=== PATIENT | male | born 1965 | race African-American/Black ===

== ENCOUNTER 2020-04-06 14:43 | Inpatient (IN) | payer OTHER ==
--- NOTE | 2020-04-06 15:05 | PDOC ---
History of Present Illness - General Chief Complaint: Lethargy Stated Complaint: FOUND ON THE STREET - History of Present Illness Initial Comments: 04/06/20 15:54 54 y/o M hx of diabetes and HepC presents to the ED via EMS after being found on the ground by neighbours. per EMS lancets for glucose checks were found next to him. pt arousable to voice but keeps falling asleep can identity self and place, and able to follow instructions when arousable. Patient denies JETER, vision change, palpitations, cough, wheezing, orthopena, PND, leg swelling/pain, N/V, F,C, CP, SOB, urinary complaints, hematuria, BPR, abdominal pain, diarrhea, constipation, lightheadedness, weakness, sensory changes. PMHx: as noted above ROS: as noted SHx: Denies Etoh, IVDA, tobacco use Allergies: NKDA ROS: GENERAL/CONSTITUTIONAL: No fever or chills. No weakness. HEAD, EYES, EARS, NOSE AND THROAT: No change in vision. No ear pain or discharge. No sore throat. CARDIOVASCULAR: No chest pain or shortness of breath RESPIRATORY: No cough, wheezing, or hemoptysis. GASTROINTESTINAL: No nausea, vomiting, diarrhea or constipation. GENITOURINARY: No dysuria, frequency, or change in urination. MUSCULOSKELETAL: No joint or muscle swelling or pain. No neck or back pain. SKIN: No rash NEUROLOGIC: No headache, vertigo, loss of consciousness, or change in strength/sensation. ENDOCRINE: No increased thirst. No abnormal weight change HEMATOLOGIC/LYMPHATIC: No anemia, easy bleeding, or history of blood clots. ALLERGIC/IMMUNOLOGIC: No hives or skin allergy. PE: GENERAL: Drowsy. HEAD: No signs of trauma, normocephalic, atraumatic EYES: pupils equal and non-reactive to light (no pinpoint pupils) , EOMI, sclera anicteric, conjunctiva clear ENT: Auricles normal inspection, nares patent, NECK: Normal ROM, supple, no lymphadenopathy, JVD, or masses LUNGS: No distress, clear to auscultation bilaterally HEART: Regular rate and rhythm, normal S1 and S2, no murmurs, rubs or gallops, peripheral pulses normal and equal bilaterally. ABDOMEN: Soft, nontender, normoactive bowel sounds. No guarding, no rebound. No masses EXTREMITIES : Normal inspection, no edema. No clubbing or cyanosis NEUROLOGICAL: following commands but repeatedly falls asleep. 5/5 strength upper and lower extremities. AOx 2( person and place) SKIN: Warm, Dry, normal turgor, no rashes or lesions noted 04/06/20 16:58 Past History - Medical History Allergies/Adverse Reactions: Allergies Allergy/AdvReac Type Severity Reaction Status Date / Time No Known Drug Allergies Allergy Verified 04/06/20 16:23 Home Medications: Ambulatory Orders Insulin (Novolog 70/30) [Novolog Mix 70/30 Vial -] 15 units SQ BID 04/06/20 Aspirin [ASA -] 81 mg PO DAILY #30 tab.chew 04/11/20 ED Treatment Course - LABORATORY CBC & Chemistry Diagram: 04/08/20 06:09 04/09/20 15:50 - ADDITIONAL ORDERS Additional order review: Laboratory Results 04/06/20 14:54 POC Glucometer 476 04/06/20 14:54 POC Glucometer 476 Medical Decision Making - Medical Decision Making 04/06/20 15:56 54 y/o M hx of diabetes and HepC presents to the ED via EMS after being found on the ground by neighbours. per EMS lancets for glucose checks were found next to him. dka, hhs, drug overdose, syncope labs fluids repeat glucose checks reassess. 04/06/20 16:39 initial repletion with LR proceed with 1L of 1/2NS at 100ml/hr with potassium. continue bmp and glucose checks. no anion gap or acidosis (vbg) ketones mildly elevated 3.7 drug levels pending. 04/06/20 18:06 04/06/20 19:07 glucose down to 405 from 510 potassium still the same will increase rate to 200ml/hr pt more alert. last thing he remembers befor coming to hospital was being outside says he takes other medications but does not know what they are for. Discharge - Discharge Information Problems reviewed: Yes Clinical Impression/Diagnosis: Hyperglycemia Syncope Qualifiers: Syncope type: unspecified Qualified Code(s): R55 - Syncope and collapse Altered mental status Qualifiers: Altered mental status type: unspecified Qualified Code(s): R41.82 - Altered mental status, unspecified Condition: Stable Disposition: HOME - Follow up/Referral - Patient Discharge Instructions - Post Discharge Activity
[2020-04-06] MEDS ORDERED: LACTATED RINGERS SOLUTION 1000 ML INFUS.BAG IV STA (15:22)
--- NOTE | 2020-04-06 15:22 | PDOC ---
Attending Attestation - Resident Resident Name: Mike Singleton - ED Attending Attestation I have performed the following: I have examined & evaluated the patient, The case was reviewed & discussed with the resident, I agree w/resident's findings & plan, Exceptions are as noted - HPI HPI: 04/06/20 15:21 54YOM with h/o IDDM who was BIBEMS [place], then subsequently altered. He himself notes recent somnolence, lethargy, malaise, decreased appetite, and self-reported dehydration worsening for the past several days. States that he lives at home with his mother and he has not been taking care of himself, non-adherent to his outpatient medication regimen. The patient is initially somnolent and unable to provide helpful detailed medical history. - Physicial Exam PE: 04/06/20 16:38 GENERAL: a bit tired-appearing, pleasant-appearing adult male, POC, A/Ox4, no distress, answers questions appropriately HEENT: PERRLA, EOMI, moist mucous membranes NECK/BACK: no midline ttp, no spinal step-off or deformity, no hematoma, full ROM, neck supple CARDIOVASCULAR: regular rate/rhythm, no MGR, strong peripheral pulses, capillary refill 3 seconds, extremities wwp, no edema LUNGS/RESPIRATORY: no respiratory distress, CTAB GI/ABDOMEN: symmetric [id number], normoactive BS, soft, no ttp, no midline pulsatile masses : no CVA tenderness MSK/EXTREMITIES: no muscle atrophy, no acute deformity SKIN: warm and dry, no pallor, no jaundice, no rash, no pathologic-appearing bruising, no skin breakdown, no cuts, no lesions NEUROLOGICAL: GCS 15, CN II-XII grossly intact, 5/5 strength proximally and distally, no facial droop - Medical Decision Making 04/06/20 17:35 54YOM with h/o IDDM who p/w LOC and recent malaise/somnolence/lethargy, somewhat decreased ALOC on arrival, now improved. Initial Vital Signs Temp Pulse Resp BP Pulse Ox 98.5 F 78 20 110/72 100 04/06/20 15:02 04/06/20 15:02 04/06/20 15:02 04/06/20 15:02 04/06/20 15:02 DDX IBNLT: Most likely the patient had syncope resulting in fall, after which time he was found on the street and altered. Underlying cause likely uncontrolled IDDM with hyper/hypoglycemia, other electrolyte derangement, underlying arrhythmia, hypotension, hypoxia, ACS, CVA, TIA, etc. Possible orthostasis or vasovagal although these are diagnoses of exclusion. Unlikely PE given normal vitals on arrival and lack of right heart strain or tachycardia on EKG, unlikely seizure without underlying hx but this is still possible. Possible critical aortic stenosis but this is less likely without audible murmur, and the patient is young for this diagnosis. CXR: nothing acute Provider Orders Category Date Time Status VBG [VENOUS BLOOD GAS] Stat ABG 04/06/20 15:[address] WITHOUT CONTRAST [CT] Stat CT Scan 04/06/20 15:26 Ordered ELECTROCARDIOGRAM [CARD] Stat Cardiology 04/06/20 15:08 Ordered BGM (Blood Glucose Monitoring) Q1H Care 04/06/20 15:51 Active EKG needed NOW Care 04/06/20 15:09 Completed Insert Saline Lock NOW Care 04/06/20 15:08 Active Isolation Precautions As directed Care 04/06/20 15:36 Active ACETAMINOPHEN Stat Lab 04/06/20 16:50 Results ACTIVATED PTT Stat Lab 04/06/20 15:20 Completed ALCOHOL Stat Lab 04/06/20 14:55 Ordered BETA-HYDROXYBUTYRATE Stat Lab 04/06/20 15:20 Completed BMP [BASIC METABOLIC PANEL] Stat Lab 04/06/20 17:30 Uncollected CARDIAC PROFILE ([facility]) Stat Lab 04/06/20 15:20 Completed CBC WITH DIFFERENTIAL Stat Lab 04/06/20 15:20 Completed COMP METABOLIC PANEL Stat Lab 04/06/20 15:20 Completed COVID-19 Stat Lab 04/06/20 14:55 Ordered POC GLUCOSE TESTING Routine Lab 04/06/20 14:54 Completed POC GLUCOSE TESTING Routine Lab 04/06/20 15:11 Completed PT/INR (PROTHROMBIN TIME) Stat Lab 04/06/20 15:20 Completed SALICYLATE Stat Lab 04/06/20 16:50 Results UA ([facility]) ONLY Stat Lab 04/06/20 15:08 Uncollected Urine Toxicology [DRUG SCREEN,UR ER- [facility]] Stat Lab 04/06/20 15:10 Uncollected Lactated Ringers Solution Medication 04/06/20 15:45 Discontinued 1,000 ml IV ONCE ONE Lactated Ringers Solution Medication 04/06/20 15:22 Discontinued 1,000 ml IV ONCE STA Sodium Chloride 0.45%/Pot [1/2Ns+20Meq KCl] Medication 04/06/20 16:30 Active 20 meq in 1,000 ml IV ASDIR IV Insert NOW Phy Order 04/06/20 15:09 Active CHEST X-RAY PORTABLE* [RAD] Stat Radiology 04/06/20 15:09 Taken Medications Generic Name Dose Route Start Last Admin Trade Name Freq PRN Reason Stop Dose Admin Potassium Chloride/Sodium Chloride 20 meq in 1,000 mls @ 100 mls/hr 04/06/20 16:30 04/06/20 16:46 1/2ns+20meq Kcl IV 100 mls/hr ASDIR KAREN Administration Discontinued Medications Generic Name Dose Route Start Last Admin Trade Name Freq PRN Reason Stop Dose Admin Lactated Ringer's 1,000 ml 04/06/20 15:22 04/06/20 16:35 Lactated Ringers Solution IV 04/06/20 15:23 1,000 ml ONCE STA Administration Lactated Ringer's 1,000 ml 04/06/20 15:45 04/06/20 16:35 Lactated Ringers Solution IV 04/06/20 15:46 Not Given ONCE ONE Lab Results WBC 4.4 K/mm3 (4.0-10.0) 04/06/20 15:20 RBC 4.17 M/mm3 (4.00-5.60) 04/06/20 15:20 Hgb 13.1 GM/dL (11.7-16.9) 04/06/20 15:20 Hct 39.0 % (35.4-49) 04/06/20 15:20 MCV 93.5 fl (80-96) 04/06/20 15:20 MCH 31.4 pg (25.7-33.7) 04/06/20 15:20 MCHC 33.5 g/dl (32.0-35.9) 04/06/20 15:20 RDW 14.0 % (11.9-15.9) 04/06/20 15:20 Plt Count 189 K/MM3 (134-434) 04/06/20 15:20 MPV 10.5 fl (7.5-11.1) 04/06/20 15:20 Absolute Neuts (auto) 1.7 K/mm3 (1.5-8.0) 04/06/20 15:20 Neutrophils % 39.4 % (42.8-82.8) L 04/06/20 15:20 Lymphocytes % 50.7 % (8-40) H 04/06/20 15:20 Monocytes % 7.9 % (3.8-10.2) 04/06/20 15:20 Eosinophils % 1.1 % (0-4.5) 04/06/20 15:20 Basophils % 0.9 % (0-2.0) 04/06/20 15: Nucleated RBC % 0 % (0-0) 04/06/20 15:20 PT with INR 10.30 SEC (9.7-13.0) 04/06/20 15:20 INR 0.87 (0.83-1.09) 04/06/20 15:20 PTT (Actin FS) 27.6 SECONDS (25.2-36.5) 04/06/20 15:20 VBG pH 7.492 (7.310-7.410) H 04/06/20 15:20 POC VBG pCO2 32.8 mmHg (38-52) L 04/06/20 15:20 POC VBG pO2 146.6 mmHg (28-48) H 04/06/20 15:20 VBG HCO3 24.5 mmol/L (23-29) 04/06/20 15:20 VBG O2 Sat (Griffin) 99.1 % (70-80) H 04/06/20 15:20 VBG Base Excess 1.7 mmol/L (-2-2) 04/06/20 15:20 Sodium 136 mmol/L (136-145) 04/06/20 15:20 Potassium 3.8 mmol/L (3.5-5.1) 04/06/20 15:20 Chloride 99 mmol/L (98-107) 04/06/20 15:20 Carbon Dioxide 27 mmol/L (21-32) 04/06/20 15:20 Anion Gap 10 MMOL/L (8-16) 04/06/20 15:20 BUN 8.4 mg/dL (7-18) 04/06/20 15:20 Creatinine 1.1 mg/dL (0.55-1.3) 04/06/20 15:20 Est GFR (CKD-EPI)AfAm 88.98 04/06/20 15:20 Est GFR (CKD-EPI)NonAf 76.77 04/06/20 15:20 POC Glucometer 527 UNITS (80-120) 04/06/20 15:11 Random Glucose 510 mg/dL (74-106) H* 04/06/20 15:20 Calcium 9.2 mg/dL (8.5-10.1) 04/06/20 15:20 Total Bilirubin 0.5 mg/dL (0.2-1) 04/06/20 15:20 AST 49 U/L (15-37) H 04/06/20 15:20 ALT 75 U/L (13-61) H 04/06/20 15:20 Alkaline Phosphatase 177 U/L (45-117) H 04/06/20 15:20 Creatine Kinase 79 U/L (26-308) 04/06/20 15:20 Troponin I < 0.02 ng/ml (0.00-0.05) 04/06/20 15:20 Total Protein 7.5 g/dl (6.4-8.2) 04/06/20 15:20 Albumin 3.5 g/dl (3.4-5.0) 04/06/20 15:20 Beta-Hydroxybutyrate 3.7 mg/dL (0.2-2.8) H 04/06/20 15:20 Salicylates < 1.7 mg/dL (2.8-20) L 04/06/20 16:50 CT/HEAD CT WITHOUT CONTRAST Cranial CT without contrast Clinical information: altered mental status Multiplanar imaging was performed. Intravenous contrast was not administered. No prior imaging exam is available at this facility for direct comparison. No intracranial hemorrhage is seen. There is no extra-axial fluid collection. No gross mass lesion is seen on noncontrast imaging. There is no discrete infarct within the limitations of CT. No definite abnormal intracranial attenuation is noted. A small amount of air is seen within the cavernous sinuses bilaterally probably on the basis of recent venous cannulation. The ventricles and cisterns appear unremarkable. No calvarial defect is noted. Impression: No CT evidence of acute intracranial pathology. The Pt is unsafe for discharge at this time.They require further hospital observation, workup, and treatment for syncope and altered mental status in the setting of significant hyperglycemia (although no concern for DKA at this time given lack of anion gap). Admission procedures completed by resident. Heart Score/ECG Review #1 04/06/20 15:36 Sinur rhythm, rate 68, normal axis and intervals, TWI in III, no ischemic ST-T changes Discharge - Discharge Information Problems reviewed: Yes Clinical Impression/Diagnosis: Hyperglycemia Syncope Qualifiers: Syncope type: unspecified Qualified Code(s): R55 - Syncope and collapse Altered mental status Qualifiers: Altered mental status type: unspecified Qualified Code(s): R41.82 - Altered mental status, unspecified Condition: Stable - Admission Yes - Follow up/Referral - Patient Discharge Instructions - Post Discharge Activity
[2020-04-06 15:32] LABS: VENOUS BASE EXCESS 1.7 mmol/L (-2-2); VENOUS O2 SATURATION 99.1 % (70-80); VENOUS PCO2 32.8 mmHg (38-52); VENOUS PH 7.492 (7.310-7.410)
[2020-04-06 15:36] LABS: BASO % 0.9 % (0-2.0); EOS % 1.1 % (0-4.5); HEMOGLOBIN 13.1 GM/dL (11.7-16.9); LYMPH % 50.7 % (8-40); MCH 31.4 pg (25.7-33.7); MCHC 33.5 g/dl (32.0-35.9); MEAN CELL VOLUME 93.5 fl (80-96); MEAN PLT VOLUME 10.5 fl (7.5-11.1); MONO % 7.9 % (3.8-10.2); NEUT % 39.4 % (42.8-82.8); PLATELET COUNT 189 K/MM3 (134-434); RBC 4.17 M/mm3 (4.00-5.60); WHITE BLOOD COUNT 4.4 K/mm3 (4.0-10.0)
[2020-04-06 15:43] LABS: INR 0.87 (0.83-1.09); PROTHROMBIN TIME (PATIENT) 10.3 SEC (9.7-13.0)
[2020-04-06 15:45] LABS: ACTIVATED PTT 27.6 SECONDS (25.2-36.5)
[2020-04-06] MEDS ORDERED: LACTATED RINGERS SOLUTION 1000 ML INFUS.BAG IV ONE (15:45)
[2020-04-06 15:54] LABS: ALBUMIN 3.5 g/dl (3.4-5.0); BILIRUBIN,TOTAL 0.5 mg/dL (0.2-1); BLOOD UREA NITROGEN 8.4 mg/dL (7-18); CALCIUM 9.2 mg/dL (8.5-10.1); CREATININE 1.1 mg/dL (0.55-1.3); POTASSIUM 3.8 mmol/L (3.5-5.1); TOT PROT 7.5 g/dl (6.4-8.2)
[2020-04-06] MEDS ORDERED: SODIUM CHLORIDE 0.45%/POT 20 MEQ/1,000 ML INFUS.BAG IV SCH ×2 (16:30→19:00)
[2020-04-06 17:56] LABS: PH,URINE 6.5 (5.0-8.0); URINE APPEARANCE CLEAR; URINE BILIRUBIN NEGATIVE (NEGATIVE); URINE COLOR YELLOW; URINE GLUCOSE (UA) 3+ (NEGATIVE); URINE KETONE NEGATIVE (NEGATIVE); URINE LEUK ESTERASE NEGATIVE (NEGATIVE); URINE NITRITE NEGATIVE (NEGATIVE); URINE PROTEIN NEGATIVE (NEGATIVE); URINE UROBILINOGEN 0.2 mg/dL (0.2-1.0)
[2020-04-06 18:08] LABS: COCAINE, UR NEGATIVE ng/ml (CUTOFF=300); OPIATES, URI NEGATIVE ng/ml (CUTOFF=300); PHENCYCLIDINE,URINE NEGATIVE ng/ml (CUTOFF=25); URINE AMPHETAMINES NEGATIVE ng/ml (CUTOFF=500); URINE BARBITURATES NEGATIVE ng/ml (CUTOFF=200); URINE BENZODIAZEPINES NEGATIVE ng/ml (CUTOFF=200)
[2020-04-06 18:16] LABS: METHADONE, UR NEGATIVE ng/ml (CUTOFF=300)
[2020-04-06 18:43] LABS: ANION GAP 6 MMOL/L (8-16); BLOOD UREA NITROGEN 8.1 mg/dL (7-18); CALCIUM 8.9 mg/dL (8.5-10.1); CHLORIDE 103 mmol/L (98-107); CO2 29 mmol/L (21-32); CREATININE 0.9 mg/dL (0.55-1.3); POTASSIUM 3.8 mmol/L (3.5-5.1); SODIUM 137 mmol/L (136-145)
[2020-04-06 18:57] LABS: GLUCOSE,RANDOM 405 mg/dL (74-106)
--- NOTE | 2020-04-06 19:30 | PN ---
Teaching Attending Note Name of Resident: Courtney Morse ATTENDING PHYSICIAN STATEMENT I saw and evaluated the patient. I reviewed the resident's note and discussed the case with the resident. I agree with the resident's findings and plan as documented. SUBJECTIVE: Patient is a 54 year old man with a PMH of Insulin-treated DM, HTN, Lactose intolerance and Hepatitis C disease brought in by EMS [place], then subsequently altered. He himself notes recent somnolence, lethargy, malaise, decreased appetite, and self-reported dehydration worsening for the past several days. States that he lives at home with his mother and he has not been taking care of himself, non-adherent to his outpatient medication regimen. Has not been taking medications for hypertension since moving from [place] to [place] recently. Patient denies chest pain, shortness of breath, abdominal pain, headache, palpitations, fever, chills, nausea, vomiting, diarrhea, constipation, dysuria, frequency, urgency, melena, hematochezia or hematuria. Denies alcohol, tobacco or illicit drug use. No sick contacts or recent travels. Family history of DM and HTN in mother. OBJECTIVE: Alert Vital Signs Period Temp Pulse Resp BP Sys/Morales Pulse Ox Last 24 Hr 98.5 F 78 20 110/72 100 HEENT: No Jaundice, eye redness or discharge, PERRLA, EOMI. Normocephalic, atraumatic. External ears are normal and hearing is grossly intact. No nasal discharge. Neck: Supple, nontender. No palpable adenopathy or thyromegaly. No JVD Chest: Good effort. Clear to auscultation and percussion. Heart: Regular. No S3, rub or murmur Abdomen: Not distended, soft, nontender and no HSM. No rebound or guarding. Normal bowel sounds. Ext: Peripheral pulses intact. No leg edema. Skin: Warm and dry. No petechiae, rash or ecchymosis. Neuro: Alert. Oriented x3. CN 2-12 grossly intact. Sensation grossly intact in all four extremities and DTR are symmetric. Psych: Appropriate mood and affect. Good insight. Current Medications Generic Name Dose Route Start Last Admin Trade Name Freq PRN Reason Stop Dose Admin Potassium Chloride/Sodium Chloride 20 meq in 1,000 mls @ 200 mls/hr 04/06/20 19:00 04/06/20 19:10 1/2ns+20meq Kcl IV 200 mls/hr ASDIR KAREN Administration Abnormal Lab Results 04/06/20 04/06/20 04/06/20 15:20 15:20 15:20 Neutrophils % 39.4 L Lymphocytes % 50.7 H VBG pH 7.492 H POC VBG pCO2 32.8 L POC VBG pO2 146.6 H VBG O2 Sat (Griffin) 99.1 H Anion Gap Random Glucose 510 H* AST 49 H ALT 75 H Alkaline Phosphatase 177 H Beta-Hydroxybutyrate 3.7 H Ur Specific [place] Urine Glucose (UA) Salicylates 04/06/20 04/06/20 04/06/20 16:50 17:41 17:52 Neutrophils % Lymphocytes % VBG pH POC VBG pCO2 POC VBG pO2 VBG O2 Sat (Griffin) Anion Gap 6 L Random Glucose 405 H* AST ALT Alkaline Phosphatase Beta-Hydroxybutyrate Ur Specific [place] 1.037 H Urine Glucose (UA) 3+ H Salicylates < 1.7 L Current Medications Generic Name Dose Route Start Last Admin Trade Name Freq PRN Reason Stop Dose Admin Sodium Chloride 1,000 mls @ 150 mls/hr 04/06/20 21:15 Normal Saline - IV ASDIR [facility] Potassium Chloride 10 meq in 100 mls @ 100 mls/hr 04/06/20 21:30 Potassium Chloride 10 Meq Premix Ivpb - IVPB 04/06/20 23:29 Q60M [facility] Insulin Aspart 1 vial 04/06/20 22:00 Novolog Vial Sliding Scale - SQ ACHS [facility] Protocol ASSESSMENT AND PLAN: 1. Uncontrolled DM/AMS/Syncope - AMS and syncope likely due to hyperglycemia. There is no evidence of infection and urine toxicology screen is negative. CXR shows cardiomegaly with no evidence of acute lung disease. No evidence of acute intracranial pathology on noncontrast head CT scan. Will admit to telemetry, treat with IV and PO KCL, IV NS and give stat dose of IV insulin before switching to sliding scale. Will get ECHO, urine protein/creatinine ratio, TSH, carotid doppler, fasting lipids, brain MRI, do speech and swallow evaluation, neurochecks and implement fall/aspiration/seizure precautions. Consult PT/Neurology. We will provide comprehensive diabetes care with patient teaching and counseling about the importance of adherence to prescribed diabetes regimen, euglycemia, eye care and foot care. Elevated LFTs may be due to underlying Hepatitis C disease. Will trend LFTs, get upper abdominal sonogram and hepatitis serology. EKG shows NSR at 68/minute, T wave inversion in III and QTc [address]-T wave changes. Initial troponin is negative. No old EKG a vailable for comparison. Viral testing for COVID-19 ordered and patient placed on airborne, droplet and contact isolation. 2. Hypertension Will start Lisinopril 20 mg q HS and HCTZ 12.5 mg q am. S ubsequently, will revise regimen to ensure [id number] excellent BP control. Patient counseled on the injurious effects of uncontrolled hypertension. Nonpharmacologic measures to control hypertension like weight loss, salt restriction and exercise stressed. Importance of adherence to treatment regimen and attainment of normotension emphasized. 3. DVT prophylaxis - Lovenox 40 mg SQ q 24 hours. 4. Advance directives - Full code
[2020-04-06] MEDS ORDERED: INSULIN (NOVOLOG) ASPART 100 UNITS/ML 10ML VIAL SQ ONE (21:10)
--- NOTE | 2020-04-06 21:17 | HP ---
CHIEF COMPLAINT: Hyperglycemia PCP: does not have one HISTORY OF PRESENT ILLNESS: 54yo AAM with PMHx IDDM and HTN (currently does not have his medication) who presents with hyperglycemia. Patient originally moved to the area from [place] to live with his mother. Due to his move and COVID ontop of difficul ties with medicaid (infinity plan), he was not able establish care in the area as of now. He received some insulin in the mail from [place] about one month ago but has not taken any BP meds since leaving. Today, he went to an outside anabaptism event. He did not have anything to eat or drink at the event, and as he was about to take a bus, he started to feel unwell and took a seat in the grass. Patient cannot recall of he experienced LOC or not. Some nearby police officers saw him. They initially thought he was high on drugs and asked to search his bag. Once they realized that he was unwell, they brought him to the hospital. Upon arrival, patient was exhibiting signs of AMS which resolved shortly thereafter. Patient denied any associated symptoms including NVD, chills, fever, SOB, CP. Endorsed feeling mildly hungry and needs to use the bathroom. 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 Home: lives with mother Family History: mother has DM and HTN patient does not know any other family member's medical history Allergies No Known Drug Allergies Allergy (Verified 04/06/20 16:23) HOME MEDICATIONS: Home Medications Medication Instructions Recorded Insulin (Novolog 70/30) [Novolog 15 units SQ BID 04/06/20 Mix 70/30 Vial] REVIEW OF SYSTEMS as stated above PHYSICAL EXAMINATION Vital Signs - 24 hr 04/06/20 15:02 Temperature 98.5 F Pulse Rate 78 Respiratory 20 Rate Blood Pressure 110/72 O2 Sat by Pulse 100 Oximetry (%) GENERAL: AAM, appears younger than stated age, average body habitus, AAOx3, somewhat tired but responds appropriately, no signs of acute distress HEAD: Normal with no signs of trauma EYES: red flushed sclera, PERRL, direct and consensual pupillary reflex intact, extraocular movements intact LUNGS: CTAB, no wheezing appreciated HEART: RRR, clear S1 S2 appreciated without murmur ABDOMEN: Soft, nontender, not distended, active bowel sounds UPPER EXTREMITIES: peripheral pulses palpable, warm to touch, no clubbing noted LOWER EXTREMITIES: dorsalis pedis pulses palpable, warm to touch, no peripheral edema appreciated NEUROLOGICAL: Cranial nerves II-XII grossly intact, mildly slurred speech PSYCHIATRIC: Cooperative and responds appropriately. Limited eye contact. Appropriate mood and mildly flat affect SKIN: Warm to touch, no rashes or lesions noted Laboratory Results - last 24 hr 04/06/20 04/06/20 04/06/20 14:54 15:11 15:20 WBC RBC Hgb Hct MCV MCH MCHC RDW Plt Count MPV Absolute Neuts (auto) Neutrophils % Lymphocytes % Monocytes % Eosinophils % Basophils % Nucleated RBC % PT with INR INR PTT (Actin FS) VBG pH 7.492 H POC VBG pCO2 32.8 L POC VBG pO2 146.6 H VBG HCO3 24.5 VBG O2 Sat (Griffin) 99.1 H VBG Base Excess 1.7 Sodium Potassium Chloride Carbon Dioxide Anion Gap BUN Creatinine Est GFR (CKD-EPI)AfAm Est GFR (CKD-EPI)NonAf POC Glucometer 476 527 Random Glucose Calcium Total Bilirubin AST ALT Alkaline Phosphatase Creatine Kinase Troponin I Total Protein Albumin Beta-Hydroxybutyrate Urine Color Urine Appearance Urine pH Ur Specific [place] Urine Protein Urine Glucose (UA) Urine Ketones Urine Blood Urine Nitrite Urine Bilirubin Urine Urobilinogen Ur Leukocyte Esterase Salicylates Opiates Screen Methadone Screen Acetaminophen Barbiturate Screen Phencyclidine Screen Ur Amphetamines Screen MDMA (Ecstasy) Screen Benzodiazepines Screen Cocaine Screen U Marijuana (THC) Screen Alcohol, Quantitative 04/06/20 04/06/20 04/06/20 15:20 15:20 15:20 WBC 4.4 RBC 4.17 Hgb 13.1 Hct 39.0 MCV 93.5 MCH 31.4 MCHC 33.5 RDW 14.0 Plt Count 189 MPV 10.5 Absolute Neuts (auto) 1.7 Neutrophils % 39.4 L Lymphocytes % 50.7 H Monocytes % 7.9 Eosinophils % 1.1 Basophils % 0.9 Nucleated RBC % 0 PT with INR 10.30 INR 0.87 PTT (Actin FS) 27.6 VBG pH POC VBG pCO2 POC VBG pO2 VBG HCO3 VBG O2 Sat (Griffin) VBG Base Excess Sodium 136 Potassium 3.8 Chloride 99 Carbon Dioxide 27 Anion Gap 10 BUN 8.4 Creatinine 1.1 Est GFR (CKD-EPI)AfAm 88.98 Est GFR (CKD-EPI)NonAf 76.77 POC Glucometer Random Glucose 510 H* Calcium 9.2 Total Bilirubin 0.5 AST 49 H ALT 75 H Alkaline Phosphatase 177 H Creatine Kinase Troponin I Total Protein 7.5 Albumin 3.5 Beta-Hydroxybutyrate 3.7 H Urine Color Urine Appearance Urine pH Ur Specific [place] Urine Protein Urine Glucose (UA) Urine Ketones Urine Blood Urine Nitrite Urine Bilirubin Urine Urobilinogen Ur Leukocyte Esterase Salicylates Opiates Screen Methadone Screen Acetaminophen Barbiturate Screen Phencyclidine Screen Ur Amphetamines Screen MDMA (Ecstasy) Screen Benzodiazepines Screen Cocaine Screen U Marijuana (THC) Screen Alcohol, Quantitative 04/06/20 04/06/20 04/06/20 15:20 16:50 17:41 WBC RBC Hgb Hct MCV MCH MCHC RDW Plt Count MPV Absolute Neuts (auto) Neutrophils % Lymphocytes % Monocytes % Eosinophils % Basophils % Nucleated RBC % PT with INR INR PTT (Actin FS) VBG pH POC VBG pCO2 POC VBG pO2 VBG HCO3 VBG O2 Sat (Griffin) VBG Base Excess Sodium 137 Potassium 3.8 Chloride 103 Carbon Dioxide 29 Anion Gap 6 L BUN 8.1 Creatinine 0.9 Est GFR (CKD-EPI)AfAm 113.41 Est GFR (CKD-EPI)NonAf 97.85 POC Glucometer Random Glucose 405 H* Calcium 8.9 Total Bilirubin AST ALT Alkaline Phosphatase Creatine Kinase 79 Troponin I < 0.02 Total Protein Albumin Beta-Hydroxybutyrate Urine Color Urine Appearance Urine pH Ur Specific [place] Urine Protein Urine Glucose (UA) Urine Ketones Urine Blood Urine Nitrite Urine Bilirubin Urine Urobilinogen Ur Leukocyte Esterase Salicylates < 1.7 L Opiates Screen Methadone Screen Acetaminophen < 2.0 Barbiturate Screen Phencyclidine Screen Ur Amphetamines Screen MDMA (Ecstasy) Screen Benzodiazepines Screen Cocaine Screen U Marijuana (THC) Screen Alcohol, Quantitative < 3 04/06/20 04/06/20 04/06/20 17:52 17:52 18:04 WBC RBC Hgb Hct MCV MCH MCHC RDW Plt Count MPV Absolute Neuts (auto) Neutrophils % Lymphocytes % Monocytes % Eosinophils % Basophils % Nucleated RBC % PT with INR INR PTT (Actin FS) VBG pH POC VBG pCO2 POC VBG pO2 VBG HCO3 VBG O2 Sat (Griffin) VBG Base Excess Sodium Potassium Chloride Carbon Dioxide Anion Gap BUN Creatinine Est GFR (CKD-EPI)AfAm Est GFR (CKD-EPI)NonAf POC Glucometer 367 Random Glucose Calcium Total Bilirubin AST ALT Alkaline Phosphatase Creatine Kinase Troponin I Total Protein Albumin Beta-Hydroxybutyrate Urine Color Yellow Urine Appearance Clear Urine pH 6.5 Ur Specific [place] 1.037 H Urine Protein Negative Urine Glucose (UA) 3+ H Urine Ketones Negative Urine Blood Negative Urine Nitrite Negative Urine Bilirubin Negative Urine Urobilinogen 0.2 Ur Leukocyte Esterase Negative Salicylates Opiates Screen Negative Methadone Screen Negative Acetaminophen Barbiturate Screen Negative Phencyclidine Screen Negative Ur Amphetamines Screen Negative MDMA (Ecstasy) Screen Negative Benzodiazepines Screen Negative Cocaine Screen Negative U Marijuana (THC) Screen Negative Alcohol, Quantitative 04/06/20 04/06/20 19:39 20:46 WBC RBC Hgb Hct MCV MCH MCHC RDW Plt Count MPV Absolute Neuts (auto) Neutrophils % Lymphocytes % Monocytes % Eosinophils % Basophils % Nucleated RBC % PT with INR INR PTT (Actin FS) VBG pH POC VBG pCO2 POC VBG pO2 VBG HCO3 VBG O2 Sat (Griffin) VBG Base Excess Sodium Potassium Chloride Carbon Dioxide Anion Gap BUN Creatinine Est GFR (CKD-EPI)AfAm Est GFR (CKD-EPI)NonAf POC Glucometer 336 415 Random Glucose Calcium Total Bilirubin AST ALT Alkaline Phosphatase Creatine Kinase Troponin I Total Protein Albumin Beta-Hydroxybutyrate Urine Color Urine Appearance Urine pH Ur Specific [place] Urine Protein Urine Glucose (UA) Urine Ketones Urine Blood Urine Nitrite Urine Bilirubin Urine Urobilinogen Ur Leukocyte Esterase Salicylates Opiates Screen Methadone Screen Acetaminophen Barbiturate Screen Phencyclidine Screen Ur Amphetamines Screen MDMA (Ecstasy) Screen Benzodiazepines Screen Cocaine Screen U Marijuana (THC) Screen Alcohol, Quantitative ASSESSMENT/PLAN: 4yo AAM with PMHx IDDM and HTN (currently does not have his medication) who presents with hyperglycemia. ED workup was remarkable for glucose 510, beta- hydroxybutyrate 3.7, AST 49, ALT 75, AlkPhos 177, VBG: pH 7.49, pCO2 32.8, pO2 146.6. Patient was admitted for treatment of DKA vs HHS. #Hyperglycemia - likely HHS (vs DKA) as patient as initially altered (neurological changes) and labs showed no increased anion gap - patient received 2L LR fluid bolus - continue IV hydration 1/2 NS at 200cc/h - give 6 units insulin IV stat - give IV KCl 10mEq x2 - supplement with PO KCl - start ISS - urine protein/Cr ratio - Echo - Carotid doppler #Increased transaminases - trend LFTs - order hepatitis serology - order limited abdominal US #HTN (not currently taking medication) BP on admission 110/72 and 127/89 - at this time BP lowering drugs not indicated - continue monitoring #FEN - 200cc/h 1/2NS - replete lytes PRN - diabetic diet #PPX - DVT: lovenox #Dispo: will continue monitoring patient Visit type - Emergency Visit Emergency Visit: Yes ED Registration Date: 04/06/20 Care time: The patient presented to the Emergency Department on the above date and was hospitalized for further evaluation of their emergent condition. - New Patient This patient is new to me today: Yes Date on this admission: 04/09/20 - Critical Care Critical Care patient: No ATTENDING PHYSICIAN STATEMENT I saw and evaluated the patient. I reviewed the resident's note and discussed the case with the resident. I agree with the resident's findings and plan as documented. SUBJECTIVE: OBJECTIVE: ASSESSMENT AND PLAN:
[2020-04-06] MEDS ORDERED: POTASSIUM CHLORIDE ORAL LIQUID 20 MEQ/15 ML PO ONE (21:18)
[2020-04-06 21:45] LABS: MAGNESIUM 2.2 mg/dL (1.8-2.4)
[2020-04-06] MEDS ORDERED: POTASSIUM CHLORIDE ORAL LIQUID 20 MEQ/15 ML ONE ×2 (21:52)
[2020-04-06] MEDS ORDERED: INSULIN SLIDING SCALE (NOVOLOG) 1 VIAL SQ SCH (22:00)
[2020-04-06] MEDS ORDERED: KCL 10 MEQ IVPB 10 MEQ/100 ML INFUS.BAG IVPB ONE (22:10)
[2020-04-06] MEDS: SODIUM CHLORIDE 1,000 ML IV SCH (22:10)
[2020-04-06] MEDS: KCL 10 MEQ IVPB 10 MEQ/100 ML INFUS.BAG IVPB SCH ×2 (22:10→23:20)
[2020-04-06] MEDS: INSULIN SLIDING SCALE (NOVOLOG) 1 VIAL SQ SCH (23:20)
[2020-04-07 00:16] LABS: BLOOD UREA NITROGEN 8.8 mg/dL (7-18); CALCIUM 8.6 mg/dL (8.5-10.1); CREATININE 1.1 mg/dL (0.55-1.3); POTASSIUM 4.4 mmol/L (3.5-5.1)
[2020-04-07] MEDS: INSULIN SLIDING SCALE (NOVOLOG) 1 VIAL SQ SCH ×10 (00:30→20:26)
[2020-04-07 02:05] LABS: MAGNESIUM 2.2 mg/dL (1.8-2.4)
[2020-04-07 02:50] VITALS: BMI 28.4
[2020-04-07] MEDS: SODIUM CHLORIDE 1,000 ML IV SCH ×2 (04:53→22:52)
[2020-04-07 06:38] LABS: HEMATOCRIT 39.3 % (35.4-49); MCH 30.9 pg (25.7-33.7); MEAN CELL VOLUME 93.7 fl (80-96); PLATELET COUNT 184 K/MM3 (134-434); RBC 4.19 M/mm3 (4.00-5.60); RDW 13.7 % (11.9-15.9); WHITE BLOOD COUNT 5.5 K/mm3 (4.0-10.0)
[2020-04-07 07:07] LABS: BILIRUBIN,TOTAL 0.6 mg/dL (0.2-1); BLOOD UREA NITROGEN 12.6 mg/dL (7-18); CALCIUM 8.7 mg/dL (8.5-10.1); MAGNESIUM 2.2 mg/dL (1.8-2.4); PHOSPHOROUS 2.4 mg/dL (2.5-4.9); POTASSIUM 3.9 mmol/L (3.5-5.1); TOT PROT 6.9 g/dl (6.4-8.2)
--- NOTE | 2020-04-07 08:55 | EKG ---
Test Reason : Blood Pressure : / mmHG Vent. Rate : 068 BPM Atrial Rate : 068 BPM P-R Int : 162 ms QRS Dur : 084 ms QT Int : 412 ms P-R-T Axes : 067 002 006 degrees QTc Int : 438 ms NORMAL SINUS RHYTHM NORMAL ECG NO PREVIOUS ECGS AVAILABLE Confirmed by Fallon Feng ([id number]) on 04/07/2020 8:55:17 AM Referred By: Confirmed By:Fallon Feng
--- NOTE | 2020-04-07 19:38 | CON.CARD ---
Consult Consult Specialty:: cardiology Reason for Consultation:: fall--?syncope - History of Present Illness Chief Complaint: Pt A&Ox3; denies chest pain or dyspnea History of Present Illness: Mr. Ricks is a 54 year old black man with a PMH of DM, HTN, Lactose intolerance and Hepatitis C, [place] in by EMS [place], then subsequently altered mental status. He himself notes recent somnolence, lethargy, malaise, decreased appetite, and self-reported dehydration worsening for the past several days. States that he lives at home with his mother and he has not been taking care of himself, non-adherent to his outpatient medication regimen. Has not been taking medications for hypertension (or DM?) since moving from [place] to [place] recently. Patient denies chest pain, shortness of breath, abdominal pain, headache, palpitations, fever, chills, nausea, vomiting, diarrhea, constipation, dysuria, frequency, urgency, melena, hematochezia or hematuria. Denies alcohol, tobacco or illicit drug use. No sick contacts or re cent travels. Family history of DM and HTN in mother. Denies hx heart disease. Denies chest pain or dyspnea. - History Source History Provided By: Patient, Medical Record Limitations to Obtaining History: Poor Historian - Past Medical History Cardio/Vascular: Yes: HTN - Smoking History Smoking history: Never smoked Home Medications - Allergies Allergies/Adverse Reactions: Allergies Allergy/AdvReac Type Severity Reaction Status Date / Time No Known Drug Allergies Allergy Verified 04/06/20 16:23 - Home Medications Home Medications: Ambulatory Orders Insulin (Novolog 70/30) [Novolog Mix 70/30 Vial -] 15 units SQ BID 04/06/20 Review of Systems - Review of Systems Constitutional: reports: Weakness, Other Eyes: reports: No Symptoms HENT: reports: No Symptoms, Ringing in Ears Neck: reports: No Symptoms Cardiovascular: reports: No Symptoms Respiratory: reports: No Symptoms Gastrointestinal: reports: No Symptoms Genitourinary: reports: No Symptoms Breasts: reports: No Symptoms Reported Musculoskeletal: reports: No Symptoms Integumentary: reports: No Symptoms Neurological: reports: No Symptoms Endocrine: reports: No Symptoms Hematology/Lymphatic: reports: No Symptoms Psychiatric: reports: Other - Risk Factors Known Risk Factors: Yes: Age, Diabetes Mellitus, Hypertension, Race Vital Signs: Vital Signs Temperature 97.0 F L 04/07/20 18:06 Pulse Rate 52 L 04/07/20 18:06 Respiratory Rate 18 04/07/20 18:06 Blood Pressure 105/74 04/07/20 18:06 O2 Sat by Pulse Oximetry (%) 97 04/07/20 09:00 Constitutional: Yes: Calm Eyes: Yes: WNL HENT: Yes: WNL Neck: Yes: WNL Respiratory: Yes: WNL Gastrointestinal: Yes: WNL Renal/: No: Anuria JVD: No Carotid Bruit: No Heart Sounds: Yes: S1, S2 Musculoskeletal: Yes: WNL Extremities: Yes: WNL Edema: No Peripheral Pulses WNL: Yes Integumentary: Yes: WNL Neurological: Yes: Alert ...Motor Strength: WNL Psychiatric: Yes: Other - Other Data Labs, Other Data: CBC, BMP 04/07/20 05:28 04/07/20 18:50 INR, PTT INR 0.87 (0.83-1.09) 04/06/20 15:20 Abnormal Lab Results 04/09/20 04/09/20 12:00 15:50 Anion Gap 7 L Random Glucose 228 H 256 H Calcium 8.4 L AST 66 H ALT 94 H Albumin 3.1 L Echo: Pending Imaging - Results Chest X-ray: Image Reviewed EKG: Image Reviewed Assessment/Plan Fall: ? syncope; ?related to not eating for several days. Uncontrolled DM (HGBA1c >15). HTN elevated LFTs Noncompliance to medications, doctors' visits Plan: TNI < 0.02; f/u serially. EKG: NSR; normal study. ECHO for LVEF, valve status, chamber sizes, wall thickness. Glucose control is imperative, and was discussed with pt at length f/u LFTs. Multiple CAD risks; Stress test when stable.
[2020-04-07] MEDS: INSULIN (LEVEMIR) 100 UNITS/ML UNITS SQ SCH (22:58)
[2020-04-08] MEDS: SODIUM CHLORIDE 1,000 ML IV SCH ×2 (01:06→23:17)
[2020-04-08] MEDS: INSULIN (LEVEMIR) 100 UNITS/ML UNITS SQ SCH ×2 (07:08→23:16)
[2020-04-08] MEDS: INSULIN SLIDING SCALE (NOVOLOG) 1 VIAL SQ SCH ×3 (07:08→16:42)
[2020-04-08 07:37] LABS: BASO % 0.5 % (0-2.0); EOS % 1.3 % (0-4.5); HEMATOCRIT 38.5 % (35.4-49); HEMOGLOBIN 12.6 GM/dL (11.7-16.9); LYMPH % 41.7 % (8-40); MCH 31.1 pg (25.7-33.7); MCHC 32.8 g/dl (32.0-35.9); MEAN CELL VOLUME 94.7 fl (80-96); MEAN PLT VOLUME 10.1 fl (7.5-11.1); MONO % 8.9 % (3.8-10.2); NEUT % 47.6 % (42.8-82.8); PLATELET COUNT 167 K/MM3 (134-434); RBC 4.07 M/mm3 (4.00-5.60); WHITE BLOOD COUNT 3.9 K/mm3 (4.0-10.0)
[2020-04-08 07:58] LABS: ALBUMIN 2.8 g/dl (3.4-5.0); BILIRUBIN,TOTAL 0.5 mg/dL (0.2-1); BLOOD UREA NITROGEN 9.2 mg/dL (7-18); CALCIUM 8.4 mg/dL (8.5-10.1); CREATININE 0.9 mg/dL (0.55-1.3); POTASSIUM 3.8 mmol/L (3.5-5.1); TOT PROT 6.4 g/dl (6.4-8.2)
--- NOTE | 2020-04-08 10:19 | ECHO ---
Name: YISSEL FINLEY Exam:Adult Echocardiogram Study Date: 04/08/2020 09:31 AM Age: 54 yrs Reason For Study: SYNCOPE Height: 70 in Weight: 198 lb BSA: 2.1 m2 MMode/2D Measurements & Calculations RVDd: 3.9 cm Ao root diam: 3.1 cm IVSd: 0.80 cm LA dimension: 3.5 cm LVIDd: 5.7 cm ACS: 2.0 cm LVIDs: 3.7 cm LVPWd: 0.88 cm EDV(Teich): 160.4 ml LVOT diam: 2.2 cm ESV(Teich): 58.7 ml LAV (MOD-bp): 67.0 ml TAPSE: 2.0 cm RV S Ryan: 13.0 cm/sec Doppler Measurements & Calculations MV E max ryan: 72.9 cm/sec Ao V2 max: 113.6 cm/sec MV A max ryan: 49.4 cm/sec Ao max P.2 mmHg MV E/A: 1.5 Ao V2 mean: 76.7 cm/sec MV dec time: 0.26 sec Ao mean P.7 mmHg Ao V2 VTI: 24.8 cm RASHID(I,D): 3.3 cm2 RASHID(V,D): 3.5 cm2 LV V1 max P.4 mmHg MR max ryan: 467.8 cm/sec LV V1 mean P.1 mmHg MR max P.5 mmHg LV V1 max: 105.3 cm/sec LV V1 mean: 67.2 cm/sec LV V1 VTI: 22.0 cm SV(LVOT): 82.2 ml TR max ryan: 179.3 cm/sec TR max P.9 mmHg PA V2 max: 70.6 cm/sec Med Peak E' Ryan: 9.3 cm/sec PA max P.0 mmHg Med E/e': 7.9 PA acc slope: 440.1 cm/sec2 Lat Peak E' Ryan: 12.3 cm/sec PA acc time: 0.15 sec Lat E/e': 5.9 PA pr(Accel): 10.9 mmHg Procedure Study Quality: Fair. Left Ventricle The left ventricular size, thickness and function are normal. The left ventricular ejection fraction is normal. Ejection Fraction = 55%. Left Ventricular Filling pattern is normal for age. Right Ventricle The right ventricle is normal in size and function. Atria Normal left and right atrial size and function. Mitral Valve The mitral valve leaflets appear normal. There is no evidence of stenosis, fluttering, or prolapse. T here is no mitral regurgitation noted. Tricuspid Valve The tricuspid valve is normal. There is mild tricuspid regurgitation. Right ventricular systolic pres sure is normal. Aortic Valve The aortic valve is normal in structure and function. Pulmonic Valve The pulmonic valve is not well seen, but is grossly normal. Great Vessels The aortic root is normal size. Pericardium/Pleura There is no pericardial effusion. Interpretation Summary LV: Upper normal size, normal thickness and function, EF 55% RV: normal Mild TR with normal RVSP. Arabella العراقي 04/08/2020 10:18 AM
--- NOTE | 2020-04-08 13:46 | PN ---
Physical Exam: SUBJECTIVE: Patient seen and examined. No acute complaints overnight. OBJECTIVE: Vital Signs Period Temp Pulse Resp BP Sys/Morales Pulse Ox Last 24 Hr 97.0 F-98.8 F 52-70 18-18 91-120/55-80 98-100 GENERAL: The patient is awake, alert, and fully oriented, in no acute distress. HEAD: Normal with no signs of trauma. EYES: Sclera anicteric, conjunctiva clear. ENT: Moist mucous membranes. NECK: Trachea midline, full range of motion, supple. LUNGS: Breath sounds equal, clear to auscultation bilaterally, no wheezes, no crackles, no accessory muscle use. HEART: Regular rate and rhythm, S1, S2 without murmur, rub or gallop. ABDOMEN: Soft, nontender, nondistended, normoactive bowel sounds EXTREMITIES: 2+ radial pulses, warm, well-perfused, no edema. NEUROLOGICAL: No focal deficits. Normal speech, gait not observed. PSYCH: Normal mood, normal affect. SKIN: Warm, dry Laboratory Results - last 24 hr 04/06/20 04/07/20 04/07/20 16:50 05:28 05:28 WBC RBC Hgb Hct MCV MCH MCHC RDW Plt Count MPV Absolute Neuts (auto) Neutrophils % Lymphocytes % Monocytes % Eosinophils % Basophils % Nucleated RBC % Sodium 140 Potassium 3.9 Chloride 106 Carbon Dioxide 29 Anion Gap 5 L BUN 12.6 Creatinine 1.0 Est GFR (CKD-EPI)AfAm 99.85 Est GFR (CKD-EPI)NonAf 86.15 POC Glucometer Random Glucose 134 H Hemoglobin A1c % Calcium 8.7 Phosphorus 2.4 L Magnesium 2.2 Total Bilirubin 0.6 AST 67 H ALT 78 H Alkaline Phosphatase 109 Total Protein 6.9 Albumin 3.0 L Triglycerides 109 Cholesterol 115 Total LDL Cholesterol 67 HDL Cholesterol 38 L TSH 1.41 COVID-19 (CHANDAN) Not detected Hep A IgM Ab Confirm Negative Hep Bs Antigen Negative Hep B Core IgM Ab Negative Hepatitis C Ab (EIA) >11.0 H 04/07/20 04/07/20 04/07/20 05:28 16:11 18:50 WBC RBC Hgb Hct MCV MCH MCHC RDW Plt Count MPV Absolute Neuts (auto) Neutrophils % Lymphocytes % Monocytes % Eosinophils % Basophils % Nucleated RBC % Sodium Potassium Chloride Carbon Dioxide Anion Gap BUN Creatinine Est GFR (CKD-EPI)AfAm Est GFR (CKD-EPI)NonAf POC Glucometer 455 Random Glucose 397 H Hemoglobin A1c % 15.2 H Calcium Phosphorus Magnesium Total Bilirubin AST ALT Alkaline Phosphatase Total Protein Albumin Triglycerides Cholesterol Total LDL Cholesterol HDL Cholesterol TSH COVID-19 (CHANDAN) Hep A IgM Ab Confirm Hep Bs Antigen Hep B Core IgM Ab Hepatitis C Ab (EIA) 04/07/20 04/08/20 04/08/20 22:54 05:53 06:09 WBC 3.9 L RBC 4.07 Hgb 12.6 Hct 38.5 MCV 94.7 MCH 31.1 MCHC 32.8 RDW 14.0 Plt Count 167 MPV 10.1 Absolute Neuts (auto) 1.8 Neutrophils % 47.6 D Lymphocytes % 41.7 H Monocytes % 8.9 Eosinophils % 1.3 Basophils % 0.5 Nucleated RBC % 0 Sodium Potassium Chloride Carbon Dioxide Anion Gap BUN Creatinine Est GFR (CKD-EPI)AfAm Est GFR (CKD-EPI)NonAf POC Glucometer 295 236 Random Glucose Hemoglobin A1c % Calcium Phosphorus Magnesium Total Bilirubin AST ALT Alkaline Phosphatase Total Protein Albumin Triglycerides Cholesterol Total LDL Cholesterol HDL Cholesterol TSH COVID-19 (CHANDAN) Hep A IgM Ab Confirm Hep Bs Antigen Hep B Core IgM Ab Hepatitis C Ab (EIA) 04/08/20 04/08/20 06:09 11:59 WBC RBC Hgb Hct MCV MCH MCHC RDW Plt Count MPV Absolute Neuts (auto) Neutrophils % Lymphocytes % Monocytes % Eosinophils % Basophils % Nucleated RBC % Sodium 139 Potassium 3.8 Chloride 108 H Carbon Dioxide 28 Anion Gap 4 L BUN 9.2 Creatinine 0.9 Est GFR (CKD-EPI)AfAm 113.41 Est GFR (CKD-EPI)NonAf 97.85 POC Glucometer 223 Random Glucose 268 H Hemoglobin A1c % Calcium 8.4 L Phosphorus Magnesium Total Bilirubin 0.5 AST 87 H ALT 92 H Alkaline Phosphatase 94 Total Protein 6.4 Albumin 2.8 L Triglycerides Cholesterol Total LDL Cholesterol HDL Cholesterol TSH COVID-19 (CHANDAN) Hep A IgM Ab Confirm Hep Bs Antigen Hep B Core IgM Ab Hepatitis C Ab (EIA) Active Medications Generic Name Dose Route Start Last Admin Trade Name Freq PRN Reason Stop Dose Admin Sodium Chloride 1,000 mls @ 150 mls/hr 04/06/20 21:15 04/08/20 01:06 Normal Saline - IV 150 mls/hr ASDIR KAREN Administration Insulin Aspart 1 vial 04/07/20 11:00 04/08/20 12:08 Novolog Vial Sliding Scale - SQ 2 units TIDAC [facility] Administration Protocol Insulin Detemir 10 units 04/07/20 22:00 04/08/20 07:08 Levemir Vial SQ Not Given BID@0700,2200 [facility] ASSESSMENT/PLAN: Pt. is a 54 y.o. M w/ PMHx. of DM, HTN, Lactose intolerance and Hepatitis C disease brought in by EMS after being found down on the [address], then subsequently found to be altered. Admitted for uncontrolled Hyperglycemia and Encephalopathy. #Toxic Metabolic Encephalopathy 2/2 HHS 2/2 Uncontrolled DM Increased Levemir to 15 units BID ISS TIDAC BGM TIDAC counselled on diet and medication adherence f/u urine microalbumin #r/o Cholecystitis Abd. US: positive for pericholecystic fluid however fluid could be from pancreas or liver, no CBD dilatation HIDA Scan Neg. GI Consult appreciated #Hx. of Hep. C and Transaminitis Hep C Abs positive f/u PCR for viral load Abd. US noted as above LFTs uptrending, c/w daily chemistries #HTN #HLD c/w home medications Echo wnl #DVT Ppx. Early Ambulation Visit type - Emergency Visit Emergency Visit: Yes ED Registration Date: 04/06/20 Care time: The patient presented to the Emergency Department on the above date and was hospitalized for further evaluation of their emergent condition. - New Patient This patient is new to me today: Yes Date on this admission: 04/08/20 - Critical Care Critical Care patient: No - Discharge Referral Referred to [facility] Med P.C.: No ATTENDING PHYSICIAN STATEMENT I saw and evaluated the patient. I reviewed the resident's note and discussed the case with the resident. I agree with the resident's findings and plan as documented. SUBJECTIVE: OBJECTIVE: ASSESSMENT AND PLAN:
--- NOTE | 2020-04-08 14:28 | PN ---
Physical Exam: SUBJECTIVE: Patient seen and examined at bedside, admitted for [facility], ABD US showing ?cholecystitis. Will need HIDA and GI evaluation. OBJECTIVE: Vital Signs Period Temp Pulse Resp BP Sys/Morales Pulse Ox Last 24 Hr 97.0 F-98.8 F 52-70 18-18 91-120/55-80 98-100 GENERAL: The patient is awake, alert, and fully oriented, in no acute distress. HEAD: Normal with no signs of trauma. EYES: PERRL, extraocular movements intact, sclera anicteric, conjunctiva clear. No ptosis. ENT: Ears normal, nares patent, oropharynx clear without exudates, moist mucous membranes. NECK: Trachea midline, full range of motion, supple. LUNGS: Breath sounds equal, clear to auscultation bilaterally, no wheezes, no crackles, no accessory muscle use. HEART: Regular rate and rhythm, S1, S2 without murmur, rub or gallop. ABDOMEN: Soft, nontender, nondistended, normoactive bowel sounds, no guarding, no rebound, no hepatosplenomegaly, no masses. EXTREMITIES: 2+ pulses, warm, well-perfused, no edema. NEUROLOGICAL: Cranial nerves II through XII grossly intact. Normal speech, gait not observed. PSYCH: Normal mood, normal affect. SKIN: Warm, dry, normal turgor, no rashes or lesions noted Laboratory Results - last 24 hr 04/06/20 04/07/20 04/07/20 16:50 05:28 05:28 WBC RBC Hgb Hct MCV MCH MCHC RDW Plt Count MPV Absolute Neuts (auto) Neutrophils % Lymphocytes % Monocytes % Eosinophils % Basophils % Nucleated RBC % Sodium 140 Potassium 3.9 Chloride 106 Carbon Dioxide 29 Anion Gap 5 L BUN 12.6 Creatinine 1.0 Est GFR (CKD-EPI)AfAm 99.85 Est GFR (CKD-EPI)NonAf 86.15 POC Glucometer Random Glucose 134 H Hemoglobin A1c % Calcium 8.7 Phosphorus 2.4 L Magnesium 2.2 Total Bilirubin 0.6 AST 67 H ALT 78 H Alkaline Phosphatase 109 Total Protein 6.9 Albumin 3.0 L Triglycerides 109 Cholesterol 115 Total LDL Cholesterol 67 HDL Cholesterol 38 L TSH 1.41 COVID-19 (CHANDAN) Not detected Hep A IgM Ab Confirm Negative Hep Bs Antigen Negative Hep B Core IgM Ab Negative Hepatitis C Ab (EIA) >11.0 H 04/07/20 04/07/20 04/07/20 05:28 16:11 18:50 WBC RBC Hgb Hct MCV MCH MCHC RDW Plt Count MPV Absolute Neuts (auto) Neutrophils % Lymphocytes % Monocytes % Eosinophils % Basophils % Nucleated RBC % Sodium Potassium Chloride Carbon Dioxide Anion Gap BUN Creatinine Est GFR (CKD-EPI)AfAm Est GFR (CKD-EPI)NonAf POC Glucometer 455 Random Glucose 397 H Hemoglobin A1c % 15.2 H Calcium Phosphorus Magnesium Total Bilirubin AST ALT Alkaline Phosphatase Total Protein Albumin Triglycerides Cholesterol Total LDL Cholesterol HDL Cholesterol TSH COVID-19 (CHANDAN) Hep A IgM Ab Confirm Hep Bs Antigen Hep B Core IgM Ab Hepatitis C Ab (EIA) 04/07/20 04/08/20 04/08/20 22:54 05:53 06:09 WBC 3.9 L RBC 4.07 Hgb 12.6 Hct 38.5 MCV 94.7 MCH 31.1 MCHC 32.8 RDW 14.0 Plt Count 167 MPV 10.1 Absolute Neuts (auto) 1.8 Neutrophils % 47.6 D Lymphocytes % 41.7 H Monocytes % 8.9 Eosinophils % 1.3 Basophils % 0.5 Nucleated RBC % 0 Sodium Potassium Chloride Carbon Dioxide Anion Gap BUN Creatinine Est GFR (CKD-EPI)AfAm Est GFR (CKD-EPI)NonAf POC Glucometer 295 236 Random Glucose Hemoglobin A1c % Calcium Phosphorus Magnesium Total Bilirubin AST ALT Alkaline Phosphatase Total Protein Albumin Triglycerides Cholesterol Total LDL Cholesterol HDL Cholesterol TSH COVID-19 (CHANDAN) Hep A IgM Ab Confirm Hep Bs Antigen Hep B Core IgM Ab Hepatitis C Ab (EIA) 04/08/20 04/08/20 06:09 11:59 WBC RBC Hgb Hct MCV MCH MCHC RDW Plt Count MPV Absolute Neuts (auto) Neutrophils % Lymphocytes % Monocytes % Eosinophils % Basophils % Nucleated RBC % Sodium 139 Potassium 3.8 Chloride 108 H Carbon Dioxide 28 Anion Gap 4 L BUN 9.2 Creatinine 0.9 Est GFR (CKD-EPI)AfAm 113.41 Est GFR (CKD-EPI)NonAf 97.85 POC Glucometer 223 Random Glucose 268 H Hemoglobin A1c % Calcium 8.4 L Phosphorus Magnesium Total Bilirubin 0.5 AST 87 H ALT 92 H Alkaline Phosphatase 94 Total Protein 6.4 Albumin 2.8 L Triglycerides Cholesterol Total LDL Cholesterol HDL Cholesterol TSH COVID-19 (CHANDAN) Hep A IgM Ab Confirm Hep Bs Antigen Hep B Core IgM Ab Hepatitis C Ab (EIA) Active Medications Generic Name Dose Route Start Last Admin Trade Name Freq PRN Reason Stop Dose Admin Sodium Chloride 1,000 mls @ 150 mls/hr 04/06/20 21:15 04/08/20 01:06 Normal Saline - IV 150 mls/hr ASDIR KAREN Administration Insulin Aspart 1 vial 04/07/20 11:00 04/08/20 12:08 Novolog Vial Sliding Scale - SQ 2 units TIDAC KAREN Administration Protocol Insulin Detemir 10 units 04/07/20 22:00 04/08/20 07:08 Levemir Vial SQ Not Given BID@0700,2200 [facility] ASSESSMENT/PLAN: 54 M Hyperglycemic hyperosmolar state HTN HLD Uncontrolled T2DM r/o acute cholecystitis Plan: Insulin premeal and basal, control diet (patient seen to eat alot of junk food) send hepatitis panel, order HIDA, GI evaluation due to Abd US findings get Lipase level Monitor electrolytes, correct PRN Urine KELLIE for GLADIS therapy DVT ppx: Ambulation Visit type - Emergency Visit Emergency Visit: Yes ED Registration Date: 04/06/20 Care time: The patient presented to the Emergency Department on the above date and was hospitalized for further evaluation of their emergent condition. - New Patient This patient is new to me today: Yes Date on this admission: 04/08/20 - Critical Care Critical Care patient: No - Discharge Referral Referred to [facility] Med P.C.: No
--- NOTE | 2020-04-08 14:38 | PN ---
Teaching Attending Note Name of Resident: Tutu Lenz ATTENDING PHYSICIAN STATEMENT I saw and evaluated the patient. I reviewed the resident's note and discussed the case with the resident. I agree with the resident's findings and plan as documented. SUBJECTIVE: Patient seen and examined at bedside, denies complaints, awaiting GI evaluation to r/o cholecystitis. VSS. OBJECTIVE: Vital Signs Period Temp Pulse Resp BP Sys/Morales Pulse Ox Last 24 Hr 97.0 F-98.8 F 52-70 18-18 91-120/55-80 98-100 GENERAL: The patient is awake, alert, and fully oriented, in no acute distress. HEAD: Normal with no signs of trauma. EYES: PERRL, extraocular movements intact, sclera anicteric, conjunctiva clear. No ptosis. ENT: Ears normal, nares patent, oropharynx clear without exudates, moist mucous membranes. NECK: Trachea midline, full range of motion, supple. LUNGS: Breath sounds equal, clear to auscultation bilaterally, no wheezes, no crackles, no accessory muscle use. HEART: Regular rate and rhythm, S1, S2 without murmur, rub or gallop. ABDOMEN: Soft, nontender, nondistended, normoactive bowel sounds, no guarding, no rebound, no hepatosplenomegaly, no masses. EXTREMITIES: 2+ pulses, warm, well-perfused, no edema. NEUROLOGICAL: Cranial nerves II through XII grossly intact. Normal speech, gait not observed. PSYCH: Normal mood, normal affect. SKIN: Warm, dry, normal turgor, no rashes or lesions noted Laboratory Results - last 24 hr 04/06/20 04/07/20 04/07/20 16:50 05:28 05:28 WBC RBC Hgb Hct MCV MCH MCHC RDW Plt Count MPV Absolute Neuts (auto) Neutrophils % Lymphocytes % Monocytes % Eosinophils % Basophils % Nucleated RBC % Sodium 140 Potassium 3.9 Chloride 106 Carbon Dioxide 29 Anion Gap 5 L BUN 12.6 Creatinine 1.0 Est GFR (CKD-EPI)AfAm 99.85 Est GFR (CKD-EPI)NonAf 86.15 POC Glucometer Random Glucose 134 H Hemoglobin A1c % Calcium 8.7 Phosphorus 2.4 L Magnesium 2.2 Total Bilirubin 0.6 AST 67 H ALT 78 H Alkaline Phosphatase 109 Total Protein 6.9 Albumin 3.0 L Triglycerides 109 Cholesterol 115 Total LDL Cholesterol 67 HDL Cholesterol 38 L TSH 1.41 COVID-19 (CHANDAN) Not detected Hep A IgM Ab Confirm Negative Hep Bs Antigen Negative Hep B Core IgM Ab Negative Hepatitis C Ab (EIA) >11.0 H 04/07/20 04/07/20 04/07/20 05:28 16:11 18:50 WBC RBC Hgb Hct MCV MCH MCHC RDW Plt Count MPV Absolute Neuts (auto) Neutrophils % Lymphocytes % Monocytes % Eosinophils % Basophils % Nucleated RBC % Sodium Potassium Chloride Carbon Dioxide Anion Gap BUN Creatinine Est GFR (CKD-EPI)AfAm Est GFR (CKD-EPI)NonAf POC Glucometer 455 Random Glucose 397 H Hemoglobin A1c % 15.2 H Calcium Phosphorus Magnesium Total Bilirubin AST ALT Alkaline Phosphatase Total Protein Albumin Triglycerides Cholesterol Total LDL Cholesterol HDL Cholesterol TSH COVID-19 (CHANDAN) Hep A IgM Ab Confirm Hep Bs Antigen Hep B Core IgM Ab Hepatitis C Ab (EIA) 04/07/20 04/08/20 04/08/20 22:54 05:53 06:09 WBC 3.9 L RBC 4.07 Hgb 12.6 Hct 38.5 MCV 94.7 MCH 31.1 MCHC 32.8 RDW 14.0 Plt Count 167 MPV 10.1 Absolute Neuts (auto) 1.8 Neutrophils % 47.6 D Lymphocytes % 41.7 H Monocytes % 8.9 Eosinophils % 1.3 Basophils % 0.5 Nucleated RBC % 0 Sodium Potassium Chloride Carbon Dioxide Anion Gap BUN Creatinine Est GFR (CKD-EPI)AfAm Est GFR (CKD-EPI)NonAf POC Glucometer 295 236 Random Glucose Hemoglobin A1c % Calcium Phosphorus Magnesium Total Bilirubin AST ALT Alkaline Phosphatase Total Protein Albumin Triglycerides Cholesterol Total LDL Cholesterol HDL Cholesterol TSH COVID-19 (CHANDAN) Hep A IgM Ab Confirm Hep Bs Antigen Hep B Core IgM Ab Hepatitis C Ab (EIA) 04/08/20 04/08/20 06:09 11:59 WBC RBC Hgb Hct MCV MCH MCHC RDW Plt Count MPV Absolute Neuts (auto) Neutrophils % Lymphocytes % Monocytes % Eosinophils % Basophils % Nucleated RBC % Sodium 139 Potassium 3.8 Chloride 108 H Carbon Dioxide 28 Anion Gap 4 L BUN 9.2 Creatinine 0.9 Est GFR (CKD-EPI)AfAm 113.41 Est GFR (CKD-EPI)NonAf 97.85 POC Glucometer 223 Random Glucose 268 H Hemoglobin A1c % Calcium 8.4 L Phosphorus Magnesium Total Bilirubin 0.5 AST 87 H ALT 92 H Alkaline Phosphatase 94 Total Protein 6.4 Albumin 2.8 L Triglycerides Cholesterol Total LDL Cholesterol HDL Cholesterol TSH COVID-19 (CHANDAN) Hep A IgM Ab Confirm Hep Bs Antigen Hep B Core IgM Ab Hepatitis C Ab (EIA) Active Medications Generic Name Dose Route Start Last Admin Trade Name Freq PRN Reason Stop Dose Admin Sodium Chloride 1,000 mls @ 150 mls/hr 04/06/20 21:15 04/08/20 01:06 Normal Saline - IV 150 mls/hr ASDIR KAREN Administration Insulin Aspart 1 vial 04/07/20 11:00 04/08/20 12:08 Novolog Vial Sliding Scale - SQ 2 units TIDAC KAREN Administration Protocol Insulin Detemir 10 units 04/07/20 22:00 04/08/20 07:08 Levemir Vial SQ Not Given BID@0700,2200 [facility] ASSESSMENT/PLAN: 54 M Hyperglycemic hyperosmolar state HTN HLD Uncontrolled T2DM r/o acute cholecystitis Plan: Insulin premeal and basal, control diet (patient seen to eat alot of junk food) Follow hepatitis panel, follow HIDA, GI evaluation pending, Echo WNL get Lipase level Monitor electrolytes, correct PRN Urine KELLIE for GLADIS therapy DVT ppx: Ambulation
--- NOTE | 2020-04-08 18:19 | CON.GI ---
Consult Consult Specialty:: GI - History of Present Illness History of Present Illness: 89 y/o male with PMH of Diabetes was sent to ER by ambulance after observed to have change in mental status. He is poorly compliant to medication. He was noted to have pericholecystic fluid by ultrasound. HIDA scan was negative. Tolerated his diet. No nausea vomiting and abdominal pain. - Past Medical History Cardio/Vascular: Yes: HTN - Smoking History Smoking history: Never smoked Home Medications - Allergies Allergies/Adverse Reactions: Allergies Allergy/AdvReac Type Severity Reaction Status Date / Time No Known Drug Allergies Allergy Verified 04/06/20 16:23 - Home Medications Home Medications: Ambulatory Orders Insulin (Novolog 70/30) [Novolog Mix 70/30 Vial] 15 units SQ BID 04/06/20 Physical Exam-GI Vital Signs: Vital Signs Temperature 97.8 F 04/08/20 14:00 Pulse Rate 54 L 04/08/20 14:00 Respiratory Rate 18 04/08/20 09:00 Blood Pressure 109/73 04/08/20 14:00 O2 Sat by Pulse Oximetry (%) 100 04/08/20 09:00 Constitutional: Yes: Well Nourished Eyes: Yes: Conjunctiva Clear HENT: Yes: Atraumatic Neck: Yes: Supple Cardiovascular: Yes: Regular Rate and Rhythm Respiratory: Yes: CTA Bilaterally ...Palpate: Yes: Soft. No: Firm/Rigid, Guarding, Hepatomegaly, Mass, Pulsatile Mass, Splenomegaly, Tenderness Labs: CBC, BMP 04/08/20 06:09 04/08/20 06:09 INR, PTT INR 0.87 (0.83-1.09) 04/06/20 15:20 Problem List - Problems (1) Elevated liver enzymes Assessment/Plan: mild no evidence of cholecystitis R> further liver as an out patient follow up with Dr Connors for further evaluation Dr Connors will resume care in am Code(s): R74.8 - ABNORMAL LEVELS OF OTHER SERUM ENZYMES
[2020-04-08 22:00] LABS: COCAINE, UR NEGATIVE ng/ml (CUTOFF=300); OPIATES, URI NEGATIVE ng/ml (CUTOFF=300); PHENCYCLIDINE,URINE NEGATIVE ng/ml (CUTOFF=25); URINE AMPHETAMINES NEGATIVE ng/ml (CUTOFF=500)
[2020-04-08 22:04] LABS: METHADONE, UR NEGATIVE ng/ml (CUTOFF=300); URINE BARBITURATES NEGATIVE ng/ml (CUTOFF=200); URINE BENZODIAZEPINES NEGATIVE ng/ml (CUTOFF=200)
[2020-04-09] MEDS: SODIUM CHLORIDE 1,000 ML IV SCH ×5 (01:16→21:33)
[2020-04-09] MEDS: INSULIN SLIDING SCALE (NOVOLOG) 1 VIAL SQ SCH ×3 (06:56→17:49)
[2020-04-09] MEDS: INSULIN (LEVEMIR) 100 UNITS/ML UNITS SQ SCH ×2 (06:56→21:34)
[2020-04-09] MEDS ORDERED: SODIUM CHLORIDE 0.9% 500 ML INFUS.BAG IV ONE (12:12)
[2020-04-09 12:47] LABS: ALBUMIN 3.1 g/dl (3.4-5.0); BILIRUBIN,TOTAL 0.3 mg/dL (0.2-1); CALCIUM 8.7 mg/dL (8.5-10.1); CREATININE 0.8 mg/dL (0.55-1.3); POTASSIUM 3.8 mmol/L (3.5-5.1)
[2020-04-09 12:50] LABS: TOT PROT 7.1 g/dl (6.4-8.2)
--- NOTE | 2020-04-09 13:51 | PN ---
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
--- NOTE | 2020-04-09 14:29 | CONSULT ---
Consult Consult Specialty:: Nephrology Reason for Consultation:: ANGELES - History of Present Illness Chief Complaint: presented elevated glucose History of Present Illness: Pt is a 54 year old male with pmhx of uncontrolled DM who was found down in the street and brought to the ER. He was found to have elevated rouge sifter on this morning's labs and I was called to evaluate him. he says that he forgot to take his insulin. He also says that his blood sugar was up to 1200 on his last hospitalization. He denies dysuria or hematuria. He is awake and alert. - History Source History Provided By: Patient - Past Medical History Cardio/Vascular: Yes: HTN - Smoking History Smoking history: Never smoked Home Medications - Allergies Allergies/Adverse Reactions: Allergies Allergy/AdvReac Type Severity Reaction Status Date / Time No Known Drug Allergies Allergy Verified 04/06/20 16:23 - Home Medications Home Medications: Ambulatory Orders Insulin (Novolog 70/30) [Novolog Mix 70/30 Vial] 15 units SQ BID 04/06/20 Family Medical History Family History: Denies Review of Systems - Review of Systems Constitutional: reports: No Symptoms Eyes: reports: No Symptoms HENT: reports: No Symptoms Neck: reports: No Symptoms Cardiovascular: reports: No Symptoms Respiratory: reports: No Symptoms Gastrointestinal: reports: No Symptoms Genitourinary: reports: No Symptoms Musculoskeletal: reports: No Symptoms Integumentary: reports: No Symptoms Neurological: reports: No Symptoms Endocrine: reports: No Symptoms Hematology/Lymphatic: reports: No Symptoms Psychiatric: reports: No Symptoms Physical Exam Vital Signs: Vital Signs Temperature 98 F 04/09/20 10:00 Pulse Rate 58 L 04/09/20 10:00 Respiratory Rate 18 04/09/20 10:00 Blood Pressure 118/86 04/09/20 10:00 O2 Sat by Pulse Oximetry (%) 98 04/09/20 10:00 Constitutional: Yes: Calm Eyes: Yes: Conjunctiva Clear HENT: Yes: Atraumatic Neck: Yes: Supple Cardiovascular: Yes: S1, S2 Respiratory: Yes: CTA Bilaterally Gastrointestinal: Yes: Normal Bowel Sounds, Soft Renal/: Yes: WNL Musculoskeletal: Yes: WNL Extremities: Yes: WNL Edema: No Neurological: Yes: Oriented Psychiatric: Yes: Oriented Labs: CBC, BMP 04/08/20 06:09 04/09/20 12:00 Laboratory Tests 04/06/20 04/07/20 04/08/20 17:52 05:28 06:09 BUN Creatinine 1.0 0.9 Urine Protein Negative Urine Glucose (UA) 3+ H Urine Blood Negative 04/09/20 04/09/20 05:25 12:00 BUN Cancelled Creatinine Cancelled 0.8 Urine Protein Urine Glucose (UA) Urine Blood Assessment/Plan Current Medications Generic Name Dose Route Start Last Admin Trade Name Juventino PRN Reason Stop Dose Admin Sodium Chloride 1,000 mls @ 150 mls/hr 04/06/20 21:15 04/09/20 07:54 Normal Saline - IV 150 mls/hr ASDIR [facility] Administration Insulin Aspart 1 vial 04/07/20 11:00 04/09/20 12:26 Novolog Vial Sliding Scale - SQ 2 units TIDAC [facility] Administration Protocol Insulin Detemir 15 units 04/08/20 22:00 04/09/20 06:56 Levemir Vial SQ 15 units BID@0700,2200 [facility] Administration Laboratory Tests 04/06/20 04/06/20 04/07/20 17:52 21:25 05:28 Hemoglobin A1c % 15.2 H Ur Specific [place] 1.037 H Urine Protein Negative Urine Glucose (UA) 3+ H Urine Blood Negative Protein/Creatinin Ratio 0.2 Laboratory Tests 04/09/20 04/09/20 05:25 12:00 Creatinine Cancelled 0.8 Impression 1. DM 2. dehydration 3. elevated rouge sifter 4. glucosuria Plan - from this morning are likely an error - lab cancelled the am bmp and reported the repeat of 0.8 - will need better glucose control - discussed findings with pt - ua neg for blood or protein - check microalbumin
--- NOTE | 2020-04-09 16:00 | PN ---
Progress Note, Physician Chief Complaint: Pt A&OX3; ambulating in room; no chest pain. History of Present Illness: Mr. Ricks is a 54 year old black man with a PMH of DM, HTN, Lactose intolerance and Hepatitis C, brought in by EMS [place], then subsequently altered mental status. He himself notes recent somnolence, lethargy, malaise, decreased appetite, and self-reported dehydration worsening for the past several days. States that he lives at home with his mother and he has not been taking care of himself, non-adherent to his outpatient medication regimen. Has not been taking medications for hypertension (or DM?) since moving from [place] to [place] recently. Patient denies chest pain, shortness of breath, abdominal pain, headache, palpitations, fever, chills, nausea, vomiting, diarrhea, constipation, dysuria, frequency, urgency, melena, hematochezia or hematuria. Denies alcohol, tobacco or illicit drug use. No sick contacts or recent travels. Family history of DM and HTN in mother. Denies hx heart disease. Denies chest pain or dyspnea. - Current Medication List Current Medications: Active Medications Sodium Chloride (Normal Saline -) 1,000 mls @ 150 mls/hr IV [facility] Last Admin: 04/09/20 07:54 Dose: 150 mls/hr Documented by: Insulin Aspart (Novolog Vial Sliding Scale -) 1 vial SQ [facility]; Protocol Last Admin: 04/09/20 12:26 Dose: 2 units Documented by: Insulin Detemir (Levemir Vial) 15 units SQ BID@0700,2200 [facility] Last Admin: 04/09/20 06:56 Dose: 15 units Documented by: - Objective Vital Signs: Vital Signs Temperature 98.1 F 04/09/20 14:00 Pulse Rate 66 04/09/20 14:00 Respiratory Rate 18 04/09/20 10:00 Blood Pressure 109/68 04/09/20 14:00 O2 Sat by Pulse Oximetry (%) 98 04/09/20 10:00 Constitutional: Yes: No Distress Eyes: Yes: WNL HENT: Yes: WNL Neck: Yes: WNL Cardiovascular: Yes: S1, S2 Labs: CBC, BMP 04/08/20 06:09 04/09/20 12:00 INR, PTT INR 0.87 (0.83-1.09) 04/06/20 15:20 Assessment/Plan Fall: ? syncope; ?related to not eating for several days and uncontrolled DM. Uncontrolled DM (HGBA1c >15). HTN Noncompliance to medications, doctors' visits Elevated LFTs. Plan: TNI < 0.02 EKG: NSR; normal study. ECHO: normal LVEF. Glucose control is imperative, and was discussed with pt again. (Pt did lose at least 75 lbs in the past year or two through change in diet and increase in exercise). Consider ACEI for renal protection; f/u BP carefully. Stress MIBI in am.
[2020-04-09 16:38] LABS: BLOOD UREA NITROGEN 7.6 mg/dL (7-18); CALCIUM 8.4 mg/dL (8.5-10.1); CREATININE 0.9 mg/dL (0.55-1.3); POTASSIUM 3.6 mmol/L (3.5-5.1)
[2020-04-09] MEDS ORDERED: INSULIN (NOVOLOG) ASPART 100 UNITS/ML 10ML VIAL ONE (17:46)
--- NOTE | 2020-04-09 17:57 | PN ---
Teaching Attending Note Name of Resident: Tutu Lenz ATTENDING PHYSICIAN STATEMENT I saw and evaluated the patient. I reviewed the resident's note and discussed the case with the resident. I agree with the resident's findings and plan as documented. SUBJECTIVE: Patient seen and examined at bedside, wants to go home, denies complaints, awaiting Cardiology evaluation, GI signed off. VSS. OBJECTIVE: GENERAL: The patient is awake, alert, and fully oriented, in no acute distress. HEAD: Normal with no signs of trauma. EYES: PERRL, extraocular movements intact, sclera anicteric, conjunctiva clear. No ptosis. ENT: Ears normal, nares patent, oropharynx clear without exudates, moist mucous membranes. NECK: Trachea midline, full range of motion, supple. LUNGS: Breath sounds equal, clear to auscultation bilaterally, no wheezes, no crackles, no accessory muscle use. HEART: Regular rate and rhythm, S1, S2 without murmur, rub or gallop. ABDOMEN: Soft, nontender, nondistended, normoactive bowel sounds, no guarding, no rebound, no hepatosplenomegaly, no masses. EXTREMITIES: 2+ pulses, warm, well-perfused, no edema. NEUROLOGICAL: Cranial nerves II through XII grossly intact. Normal speech, gait not observed. PSYCH: Normal mood, normal affect. SKIN: Warm, dry, normal turgor, no rashes or lesions noted Vital Signs - 24 hr 04/08/20 04/08/20 04/08/20 19:39 21:00 22:00 Temperature 98.1 F 97.9 F Pulse Rate 55 L 55 L Respiratory 20 20 Rate Blood Pressure 112/62 114/84 O2 Sat by Pulse 97 97 97 Oximetry (%) 04/09/20 04/09/20 04/09/20 01:00 06:00 09:00 Temperature 97.9 F 98.1 F Pulse Rate 49 L 48 L Respiratory 20 20 18 Rate Blood Pressure 114/73 113/77 O2 Sat by Pulse 95 96 98 Oximetry (%) 04/09/20 04/09/20 10:00 14:00 Temperature 98 F 98.1 F Pulse Rate 58 L 66 Respiratory 18 Rate Blood Pressure 118/86 109/68 O2 Sat by Pulse 98 Oximetry (%) Laboratory Results - last 24 hr 04/08/20 04/08/20 04/09/20 21:33 21:41 05:25 Sodium Cancelled Potassium Cancelled Chloride Cancelled Carbon Dioxide Cancelled Anion Gap Cancelled BUN Cancelled Creatinine Cancelled Est GFR (CKD-EPI)AfAm Cancelled Est GFR (CKD-EPI)NonAf Cancelled POC Glucometer 252 Random Glucose Cancelled Calcium Cancelled Magnesium Cancelled Total Bilirubin Cancelled AST Cancelled ALT Cancelled Alkaline Phosphatase Cancelled Total Protein Cancelled Albumin Cancelled Opiates Screen Negative Methadone Screen Negative Barbiturate Screen Negative Phencyclidine Screen Negative Ur Amphetamines Screen Negative MDMA (Ecstasy) Screen Negative Benzodiazepines Screen Negative Cocaine Screen Negative U Marijuana (THC) Screen Negative 04/09/20 04/09/20 04/09/20 06:37 11:30 12:00 Sodium 138 Potassium 3.8 Chloride 107 Carbon Dioxide 25 Anion Gap 7 L BUN 8.0 Creatinine 0.8 Est GFR (CKD-EPI)AfAm 119.04 Est GFR (CKD-EPI)NonAf 102.71 POC Glucometer 253 202 Random Glucose 228 H Calcium 8.7 Magnesium Total Bilirubin 0.3 AST 66 H ALT 94 H Alkaline Phosphatase 95 Total Protein 7.1 Albumin 3.1 L Opiates Screen Methadone Screen Barbiturate Screen Phencyclidine Screen Ur Amphetamines Screen MDMA (Ecstasy) Screen Benzodiazepines Screen Cocaine Screen U Marijuana (THC) Screen 04/09/20 04/09/20 15:50 17:01 Sodium 140 Potassium 3.6 Chloride 104 Carbon Dioxide 26 Anion Gap 10 BUN 7.6 Creatinine 0.9 Est GFR (CKD-EPI)AfAm 113.41 Est GFR (CKD-EPI)NonAf 97.85 POC Glucometer 257 Random Glucose 256 H Calcium 8.4 L Magnesium Total Bilirubin AST ALT Alkaline Phosphatase Total Protein Albumin Opiates Screen Methadone Screen Barbiturate Screen Phencyclidine Screen Ur Amphetamines Screen MDMA (Ecstasy) Screen Benzodiazepines Screen Cocaine Screen U Marijuana (THC) Screen Home Medications Medication Instructions Recorded Insulin (Novolog 70/30) [Novolog 15 units SQ BID 04/06/20 Mix 70/30 Vial -] Current Medications Generic Name Dose Route Start Last Admin Trade Name Freq PRN Reason Stop Dose Admin Sodium Chloride 1,000 mls @ 150 mls/hr 04/06/20 21:15 04/09/20 17:48 Normal Saline - IV 150 mls/hr ASDIR KAREN Administration Insulin Aspart 1 vial 04/07/20 11:00 04/09/20 17:49 Novolog Vial Sliding Scale - SQ 4 units TIDAC KAREN Administration Protocol Insulin Detemir 15 units 04/08/20 22:00 04/09/20 06:56 Levemir Vial SQ 15 units BID@0700,2200 [facility] Administration ASSESSMENT AND PLAN: 54 M Hyperglycemic hyperosmolar state HTN HLD Uncontrolled T2DM acute cholecystitis ruled out HCV Plan: Transition basal/pre-meal insulin to home regimen, counseled pt. on diet/exercise/med compliance Follow uip w/ GI as OP for gall bladder, HCV treatment Cardiology insisting on stress test but pt. insistent on going home DVT ppx: Ambulation
[2020-04-10] MEDS: INSULIN (LEVEMIR) 100 UNITS/ML UNITS SQ SCH ×2 (06:00→21:59)
[2020-04-10] MEDS: INSULIN SLIDING SCALE (NOVOLOG) 1 VIAL SQ SCH ×3 (06:00→17:31)
[2020-04-10] MEDS: SODIUM CHLORIDE 1,000 ML IV SCH ×2 (06:01→13:33)
--- NOTE | 2020-04-10 11:46 | PN ---
Progress Note, Physician History of Present Illness: PT has no complaints. - Current Medication List Current Medications: Active Medications Sodium Chloride (Normal Saline -) 1,000 mls @ 150 mls/hr IV ASDIR KAREN Last Admin: 04/10/20 06:01 Dose: 150 mls/hr Documented by: Insulin Aspart (Novolog Vial Sliding Scale -) 1 vial SQ TIDAC [facility]; Protocol Last Admin: 04/10/20 06:00 Dose: Not Given Documented by: Insulin Detemir (Levemir Vial) 15 units SQ BID@0700,2200 [facility] Last Admin: 04/10/20 06:00 Dose: Not Given Documented by: - Objective Vital Signs: Vital Signs Temperature 98 F 04/10/20 08:58 Pulse Rate 60 04/10/20 08:58 Respiratory Rate 18 04/10/20 08:58 Blood Pressure 136/88 04/10/20 08:58 O2 Sat by Pulse Oximetry (%) 97 04/10/20 08:58 Constitutional: Yes: Calm Eyes: Yes: Conjunctiva Clear HENT: Yes: Atraumatic Cardiovascular: Yes: S1, S2 Respiratory: Yes: CTA Bilaterally Gastrointestinal: Yes: Soft Genitourinary: Yes: WNL Musculoskeletal: Yes: WNL Edema: Yes Neurological: Yes: Oriented Psychiatric: Yes: Oriented Labs: CBC, BMP 04/08/20 06:09 04/09/20 15:50 INR, PTT INR 0.87 (0.83-1.09) 04/06/20 15:20 Assessment/Plan Current Medications Generic Name Dose Route Start Last Admin Trade Name Sageq PRN Reason Stop Dose Admin Sodium Chloride 1,000 mls @ 150 mls/hr 04/06/20 21:15 04/10/20 06:01 Normal Saline - IV 150 mls/hr ASDIR [facility] Administration Insulin Aspart 1 vial 04/07/20 11:00 04/10/20 06:00 Novolog Vial Sliding Scale - SQ [facility] Protocol Insulin Detemir 15 units 04/08/20 22:00 04/10/20 06:00 Levemir Vial SQ Not Given BID@0700,2200 [facility] Impression 1. DM 2. 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 glucosuria Plan - repeat labs improved - decrease rate of saline - will need better glucose control - ua neg for blood or protein - check microalbumin
--- NOTE | 2020-04-10 17:18 | PN ---
Physical Exam: SUBJECTIVE: Patient seen and examined OBJECTIVE: Vital Signs Period Temp Pulse Resp BP Sys/Morales Pulse Ox Last 24 Hr 97.5 F-98.1 F 41-76 18-20 121-160/60-88 97-99 GENERAL: The patient is awake, alert, and fully oriented, in no acute distress. HEAD: Normal with no signs of trauma. EYES: Sclera anicteric, conjunctiva clear. ENT: Moist mucous membranes. NECK: Trachea midline, full range of motion, supple. LUNGS: Breath sounds equal, clear to auscultation bilaterally, no wheezes, no crackles, no accessory muscle use. HEART: Regular rate and rhythm, S1, S2 without murmur, rub or gallop. ABDOMEN: Soft, nontender, nondistended, normoactive bowel sounds EXTREMITIES: 2+ radial pulses, warm, well-perfused, no edema. NEUROLOGICAL: No focal deficits. Normal speech, gait not observed. PSYCH: Normal mood, normal affect. SKIN: Warm, dry Laboratory Results - last 24 hr 04/09/20 04/10/20 04/10/20 21:32 05:44 13:26 POC Glucometer [phone] Active Medications Generic Name Dose Route Start Last Admin Trade Name Freq PRN Reason Stop Dose Admin Aspirin 81 mg 04/10/20 17:30 Asa - PO DAILY [facility] Sodium Chloride 1,000 mls @ 75 mls/hr 04/10/20 11:46 04/10/20 13:33 Normal Saline - IV 75 mls/hr ASDIR KAREN Administration Insulin Aspart 1 vial 04/07/20 11:00 04/10/20 13:33 Novolog Vial Sliding Scale - SQ 4 units TIDAC [facility] Administration Protocol Insulin Detemir 15 units 04/08/20 22:00 04/10/20 06:00 Levemir Vial SQ Not Given BID@0700,2200 [facility] ASSESSMENT/PLAN: Pt. is a 54 y.o. M w/ PMHx. of DM, HTN, Lactose intolerance and Hepatitis C disease brought in by EMS after being found down on the street, then subsequently found to be altered. Admitted for uncontrolled Hyperglycemia and Encephalopathy. #Toxic Metabolic Encephalopathy 2/2 HHS 2/2 Uncontrolled DM Increased Levemir to 15 units BID ISS TIDAC BGM TIDAC counselled on diet and medication adherence f/u urine microalbumin #r/o Cholecystitis Abd. US: positive for pericholecystic fluid however fluid could be from pancreas or liver, no CBD dilatation HIDA Scan Neg. GI Consult appreciated #Hx. of Hep. C and Transaminitis Hep C Abs positive f/u PCR for viral load Abd. US noted as above LFTs uptrending, c/w daily chemistries #HTN #HLD c/w home medications Echo wnl #DVT Ppx. Early Ambulation Visit type - Emergency Visit Emergency Visit: Yes ED Registration Date: 04/06/20 Care time: The patient presented to the Emergency Department on the above date and was hospitalized for further evaluation of their emergent condition. - New Patient This patient is new to me today: No - Critical Care Critical Care patient: No - Discharge Referral Referred to [facility] Med P.C.: No ATTENDING PHYSICIAN STATEMENT I saw and evaluated the patient. I reviewed the resident's note and discussed the case with the resident. I agree with the resident's findings and plan as documented. SUBJECTIVE: OBJECTIVE: ASSESSMENT AND PLAN:
[2020-04-10] MEDS: ASPIRIN 81 MG CHEWABLE TABLETS PO SCH (17:30)
[2020-04-11] MEDS: INSULIN (LEVEMIR) 100 UNITS/ML UNITS SQ SCH (06:09)
[2020-04-11] MEDS: INSULIN SLIDING SCALE (NOVOLOG) 1 VIAL SQ SCH ×2 (06:11→12:11)
[2020-04-11] MEDS: ASPIRIN 81 MG CHEWABLE TABLETS PO SCH (09:10)
[2020-04-11] MEDS: SODIUM CHLORIDE 1,000 ML IV SCH (09:11)
--- NOTE | 2020-04-11 14:28 | PN ---
Progress Note, Physician History of Present Illness: Pt seen and examined. No complaints. - Current Medication List Current Medications: Active Medications Aspirin (Asa -) 81 mg PO DAILY KAREN Last Admin: 04/11/20 09:10 Dose: 81 mg Documented by: Sodium Chloride (Normal Saline -) 1,000 mls @ 75 mls/hr IV ASDIR KAREN Last Admin: 04/11/20 09:11 Dose: 75 mls/hr Documented by: Insulin Aspart (Novolog Vial Sliding Scale -) 1 vial SQ TIDAC [facility]; Protocol Last Admin: 04/11/20 12:11 Dose: 2 units Documented by: Insulin Detemir (Levemir Vial) 15 units SQ BID@0700,2200 [facility] Last Admin: 04/11/20 06:09 Dose: 15 units Documented by: - Objective Vital Signs: Vital Signs Temperature 97.8 F 04/11/20 10:00 Pulse Rate 57 L 04/11/20 10:00 Respiratory Rate 19 04/11/20 10:00 Blood Pressure 136/90 04/11/20 10:00 O2 Sat by Pulse Oximetry (%) 97 04/11/20 10:00 Constitutional: Yes: Calm Eyes: Yes: Conjunctiva Clear HENT: Yes: Atraumatic Cardiovascular: Yes: S1, S2 Respiratory: Yes: CTA Bilaterally Gastrointestinal: Yes: Soft Genitourinary: Yes: WNL Musculoskeletal: Yes: WNL Edema: No Neurological: Yes: Oriented Psychiatric: Yes: Oriented Labs: CBC, BMP 04/08/20 06:09 04/09/20 15:50 INR, PTT INR 0.87 (0.83-1.09) 04/06/20 15:20 Problem List - Problems (1) Hyperglycemia Code(s): R73.9 - HYPERGLYCEMIA, UNSPECIFIED Assessment/Plan Current Medications Generic Name Dose Route Start Last Admin Trade Name Freq PRN Reason Stop Dose Admin Aspirin 81 mg 04/10/20 17:30 04/11/20 09:10 Asa - PO 81 mg DAILY KAREN Administration Sodium Chloride 1,000 mls @ 75 mls/hr 04/10/20 11:46 04/11/20 09:11 Normal Saline - IV 75 mls/hr ASDIR KAREN Administration Insulin Aspart 1 vial 04/07/20 11:00 04/11/20 12:11 Novolog Vial Sliding Scale - SQ 2 units TIDAC KAREN Administration Protocol Insulin Detemir 15 units 04/08/20 22:00 04/11/20 06:09 Levemir Vial SQ 15 units BID@0700,2200 [facility] Administration Laboratory Tests 04/07/20 04/08/20 05:28 16:10 Hepatitis C Ab (EIA) >11.0 H HCV Quantitation Pending Impression 1. DM 2. 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 glucosuria 5. pos hep c ab Plan - can stop fluids - monitor lytes - diabetic diet, discussed compliance - cardio follow up for stress test - ua neg for blood or protein - check microalbumin
[2020-04-11 15:42] VITALS: BP 114/70; PULSE 63; TEMP 99.2
--- NOTE | 2020-04-11 16:50 | PN ---
Teaching Attending Note Name of Resident: Tutu Lenz ATTENDING PHYSICIAN STATEMENT I saw and evaluated the patient. I reviewed the resident's note and discussed the case with the resident. I agree with the resident's findings and plan as documented. SUBJECTIVE: Patient seen and examined at bedside, undergoing stress testing, denies complaints. VSS. OBJECTIVE: GENERAL: The patient is awake, alert, and fully oriented, in no acute distress. HEAD: Normal with no signs of trauma. EYES: PERRL, extraocular movements intact, sclera anicteric, conjunctiva clear. No ptosis. ENT: Ears normal, nares patent, oropharynx clear without exudates, moist mucous membranes. NECK: Trachea midline, full range of motion, supple. LUNGS: Breath sounds equal, clear to auscultation bilaterally, no wheezes, no crackles, no accessory muscle use. HEART: Regular rate and rhythm, S1, S2 without murmur, rub or gallop. ABDOMEN: Soft, nontender, nondistended, normoactive bowel sounds, no guarding, no rebound, no hepatosplenomegaly, no masses. EXTREMITIES: 2+ pulses, warm, well-perfused, no edema. NEUROLOGICAL: Cranial nerves II through XII grossly intact. Normal speech, gait not observed. PSYCH: Normal mood, normal affect. SKIN: Warm, dry, normal turgor, no rashes or lesions noted Vital Signs - 24 hr 04/10/20 04/10/20 04/10/20 18:00 21:00 22:00 Temperature 97.9 F 98.2 F Pulse Rate 116 H 56 L Respiratory 20 20 20 Rate Blood Pressure 125/90 121/78 O2 Sat by Pulse 98 98 Oximetry (%) 04/11/20 04/11/20 04/11/20 02:00 06:00 09:00 Temperature 97.5 F L 97.8 F Pulse Rate 43 L 45 L Respiratory 18 18 19 Rate Blood Pressure 133/90 115/71 O2 Sat by Pulse 99 98 97 Oximetry (%) 04/11/20 04/11/20 10:00 15:41 Temperature 97.8 F 99.2 F Pulse Rate 57 L 63 Respiratory 19 19 Rate Blood Pressure 136/90 114/70 O2 Sat by Pulse 97 97 Oximetry (%) Laboratory Results - last 24 hr 04/08/20 04/08/20 04/10/20 16:10 21:33 17:28 POC Glucometer 253 Ur Random Creatinine 34.9 Ur Random Microalbumin 4.4 Microalb/Creat Ratio 13 HCV Quantitation [id number] HCV RNA log copies/mL 6.067 04/10/20 04/11/20 04/11/20 21:54 05:36 12:08 POC Glucometer 247 243 222 Ur Random Creatinine Ur Random Microalbumin Microalb/Creat Ratio HCV Quantitation HCV RNA log copies/mL Home Medications Medication Instructions Recorded Insulin (Novolog 70/30) [Novolog 15 units SQ BID 04/06/20 Mix 70/30 Vial -] Aspirin [ASA -] 81 mg PO DAILY #30 tab.chew 04/11/20 ASSESSMENT AND PLAN: 54 M Hyperglycemic hyperosmolar state r/o CAD HTN HLD Uncontrolled T2DM acute cholecystitis ruled out HCV Plan: cont. insulin regimen BGM ACQHS Awaiting stress test results, dispo ?PCI v.s. home with OP follow up with Cardiology No clinical signs for cholecystitis, GI following for HCV treatment Cardiology following DVT ppx: Ambulation
--- NOTE | 2020-04-11 16:58 | PN ---
Teaching Attending Note Name of Resident: Tutu Lenz ATTENDING PHYSICIAN STATEMENT I saw and evaluated the patient. I reviewed the resident's note and discussed the case with the resident. I agree with the resident's findings and plan as documented. SUBJECTIVE: Patient seen and examined at bedside, stress test indicative for mild ischemia but refusing PCI, cardiology clearing for DC with OP follow up. OBJECTIVE: GENERAL: The patient is awake, alert, and fully oriented, in no acute distress. HEAD: Normal with no signs of trauma. EYES: PERRL, extraocular movements intact, sclera anicteric, conjunctiva clear. No ptosis. ENT: Ears normal, nares patent, oropharynx clear without exudates, moist mucous membranes. NECK: Trachea midline, full range of motion, supple. LUNGS: Breath sounds equal, clear to auscultation bilaterally, no wheezes, no crackles, no accessory muscle use. HEART: Regular rate and rhythm, S1, S2 without murmur, rub or gallop. ABDOMEN: Soft, nontender, nondistended, normoactive bowel sounds, no guarding, no rebound, no hepatosplenomegaly, no masses. EXTREMITIES: 2+ pulses, warm, well-perfused, no edema. NEUROLOGICAL: Cranial nerves II through XII grossly intact. Normal speech, gait not observed. PSYCH: Normal mood, normal affect. SKIN: Warm, dry, normal turgor, no rashes or lesions noted Vital Signs - 24 hr 04/10/20 04/10/20 04/10/20 18:00 21:00 22:00 Temperature 97.9 F 98.2 F Pulse Rate 116 H 56 L Respiratory 20 20 20 Rate Blood Pressure 125/90 121/78 O2 Sat by Pulse 98 98 Oximetry (%) 04/11/20 04/11/20 04/11/20 02:00 06:00 09:00 Temperature 97.5 F L 97.8 F Pulse Rate 43 L 45 L Respiratory 18 18 19 Rate Blood Pressure 133/90 115/71 O2 Sat by Pulse 99 98 97 Oximetry (%) 04/11/20 04/11/20 10:00 15:41 Temperature 97.8 F 99.2 F Pulse Rate 57 L 63 Respiratory 19 19 Rate Blood Pressure 136/90 114/70 O2 Sat by Pulse 97 97 Oximetry (%) Laboratory Results - last 24 hr 04/08/20 04/08/20 04/10/20 16:10 21:33 17:28 POC Glucometer 253 Ur Random Creatinine 34.9 Ur Random Microalbumin 4.4 Microalb/Creat Ratio 13 HCV Quantitation [id number] HCV RNA log copies/mL 6.067 04/10/20 04/11/20 04/11/20 21:54 05:36 12:08 POC Glucometer 247 243 222 Ur Random Creatinine Ur Random Microalbumin Microalb/Creat Ratio HCV Quantitation HCV RNA log copies/mL Home Medications Medication Instructions Recorded Insulin (Novolog 70/30) [Novolog 15 units SQ BID 04/06/20 Mix 70/30 Vial -] Aspirin [ASA -] 81 mg PO DAILY #30 tab.chew 04/11/20 ASSESSMENT AND PLAN: 54 M Hyperglycemic hyperosmolar state r/o CAD HTN HLD Uncontrolled T2DM acute cholecystitis ruled out HCV Plan: Reinforce insulin regimen, diet/exercise, BGM monitoring Stress test for mild ischemia however patient refusing invasive measures, Cardiology cleared for OP follow up and conservative management No clinical signs for cholecystitis, GI following for HCV treatment DC with PCP and Cardiology follow up
--- NOTE | 2020-04-11 17:14 | DS ---
Physical Exam: SUBJECTIVE: Patient seen and examined OBJECTIVE: Vital Signs Period Temp Pulse Resp BP Sys/Morales Pulse Ox Last 24 Hr 97.5 F-99.2 F 43-116 18-20 114-136/70-90 97-99 PHYSICAL EXAM GENERAL: The patient is awake, alert, and fully oriented, in no acute distress. HEAD: Normal with no signs of trauma. EYES: PERRL, extraocular movements intact, sclera anicteric, conjunctiva clear. ENT: Ears normal, nares patent, oropharynx clear without exudates, moist mucous membranes. NECK: Trachea midline, full range of motion, supple. LUNGS: Breath sounds equal, clear to auscultation bilaterally, no wheezes, no crackles, no accessory muscle use. HEART: Regular rate and rhythm, S1, S2 without murmur, rub or gallop. ABDOMEN: Soft, nontender, nondistended, normoactive bowel sounds, no guarding, no rebound, no hepatosplenomegaly, no masses. EXTREMITIES: 2+ pulses, warm, well-perfused, no edema. NEUROLOGICAL: Cranial nerves II through XII grossly intact. Normal speech, gait not observed. PSYCH: Normal mood, normal affect. SKIN: Warm, dry, normal turgor, no rashes or lesions noted. LABS Laboratory Results - last 24 hr 04/08/20 04/08/20 04/10/20 16:10 21:33 17:28 POC Glucometer 253 Ur Random Creatinine 34.9 Ur Random Microalbumin 4.4 Microalb/Creat Ratio 13 HCV Quantitation [id number] HCV RNA log copies/mL 6.067 04/10/20 04/11/20 04/11/20 21:54 05:36 12:08 POC Glucometer 247 243 222 Ur Random Creatinine Ur Random Microalbumin Microalb/Creat Ratio HCV Quantitation HCV RNA log copies/mL HOSPITAL COURSE: Pt. is a 54 y.o. M w/ PMHx. of uncontrolled IDDM , HTN, lactose intolerance and hepatitis C disease in brought in by EMS after being found down on the street and for AMS. ED work up showed glucose 510, beta-hydroxybutyrate 3.7 and elevated transaminase. Pt admits to being non-compliant with insulin regimen and consumption of fast food diet. Pt was admitted to the medicine team for management of toxic metabolic encephalopathy secondary to HHS. Pt was initially given 6 units of IV insulin, IV NS, IV and PO KCL. CXR, head CT and carotid doppler study showed no acute pathology. RUQ US showed small amount of pericholecystic fluid, probable diffuse hepatic steatosis and no cholelithiasis/biliary tract dilation. HIDA scan showed filling of the gallbladder which excludes acute cystic duct obstruction. Pt was HCV positive and GI recommended outpatient follow up to discuss HCV treatment. Pts DM was managed Novolog sliding scale and Levemir 15 units BID. Pt was counselled on importance of well balanced diet, avoiding excessive fast food intake and medication adherence. Hospital follow up and medications adjustments as detailed below. Date of Admission:04/06/20 Date of Discharge: 04/11/20 Minutes to complete discharge: 35 Discharge Summary Problems reviewed: Yes Reason For Visit: HYPERGLYCEMIA ALTERED MENTAL STATUS Condition: Stable - Instructions Diet, Activity, Other Instructions: You came in for confusion and for high blood sugar. We believe that the high blood sugar caused the confusion. We imaged your head did not find anything wrong. We imaged your abdomen with a liver US because of high liver enzymes and found fluid around your gallbladder and a fatty liver. Please have repeat imaging (CT Abdomen/Pelvis) as outpatient for a right kidney cyst (1.2cm with septation) evaluation. We imaged your gallbladder and did not find anything wrong. Please follow up with your assembler tester within 1 week to discuss the results of your hepatitis test that is still pending, and if needed for further work up of your liver. You liver enzymes are still elevated and you need to follow up to ensure that they are lowering. We have provided Dr. Del Real. Please follow up with your PCP within 1 week to discuss continued management of your diabetes. You may need to start a cholesterol lowering agent once your liver enzymes are better under control. If you do not have one we have provided Dr. Joshi. Please follow up with your Gathering Machine Feeder within 1 week. If you do not have one we have provided Dr. Almeida. Please take your medications as they are prescribed. You had a stress test here that showed a mild area of ischemia in the base of your heart as well as some changes to your EKG (1mm ST depression in II, III, aVF, v4-v6) during exercise. Please follow up with your grain oilseed or pasture farm worker, Dr. Mcdonnell within 1 week. You were offered a catherization or conservative ma nagement and you elected for conservative management. Please return to the ED if you are having fevers, chills, worsening confusion or any other concerning symptoms. Please take Aspirin 81 mg ONCE a day Referrals: Nikita Joshi MD [Staff Physician] - 1 Week Estuardo Del Real DO [Staff Physician] - 1 Week Ruddy Mcdonnell MD [Staff Physician] - 1 Week Guille Almeida MD [Staff Physician] - 1 Week Disposition: HOME - Home Medications Comprehensive Discharge Medication List: Ambulatory Orders Insulin (Novolog 70/30) [Novolog Mix 70/30 Vial -] 15 units SQ BID 04/06/20 Aspirin [ASA -] 81 mg PO DAILY #30 tab.chew 04/11/20 This patient is new to me today: No Emergency Visit: Yes ED Registration Date: 04/06/20 Care time: The patient presented to the Emergency Department on the above date and was hospitalized for further evaluation of their emergent condition. Critical Care patient: No - Discharge Referral Referred to [facility] Med P.C.: No ATTENDING PHYSICIAN STATEMENT I saw and evaluated the patient. I reviewed the resident's note and discussed the case with the resident. I agree with the resident's findings and plan as documented. SUBJECTIVE: OBJECTIVE: ASSESSMENT AND PLAN:
== END 2020-04-11 16:30 | disposition home or self-care (01) | DRG 420 ==
LOC: JER 14:43 → JERBED 18:13 → J4W 23:13
PROVIDERS: ADMIT Internal Medicine
DX: E11.00 Type 2 diabetes mellitus with hyperosmolarity without nonketotic hyperglycemic-hyperosmolar coma (NKHHC) (principal); E73.9 Lactose intolerance, unspecified; G92 Toxic encephalopathy; B19.20 Unspecified viral hepatitis C without hepatic coma; E86.0 Dehydration; R63.0 Anorexia; I51.7 Cardiomegaly; R55 Syncope and collapse; R41.82 Altered mental status, unspecified; E11.65 Type 2 diabetes mellitus with hyperglycemia; K76.0 Fatty (change of) liver, not elsewhere classified; I10 Essential (primary) hypertension; Z91.14 Patient's other noncompliance with medication regimen; R74.0 Nonspecific elevation of levels of transaminase and lactic acid dehydrogenase [LDH]
CPT/HCPCS: 36415; 70450-TC; 71045-TC-FY; 76705-TC; 78226-TC; 78452-TC; 80048; 80053; 80061; 80074; 80307; 81003; 82010; 82043; 82550; 82565; 82570; 82803; 82947; 82962; 83036; 83721; 83735; 84100; 84156; 84443; 84484; 85025; 85027; 85610; 85730; 87522; 93005; 93010; 93017; 93306-TC; 93880-TC; 99285-25; A9502; A9537; J3480; U0003